=== PATIENT | male | born 1930 | race Caucasian/White ===

== ENCOUNTER → 2016-06-21 | Outpatient (CLI) | payer MEDICARE, BC ==
[2016-06-21 12:10] LABS: HEMATOCRIT 37.3 % (37.9-51.0); HGB HCT DIFFERENCE 1.7; MEAN CORPUSCULAR HEMOGLOBIN 30.7 pg (27.0-33.4); MEAN CORPUSCULAR HGB CONC 34.8 g/dL (32.0-36.0); MEAN CORPUSCULAR VOLUME 88 fl (80-97); RED BLOOD COUNT 4.23 10^6/uL (4.35-5.55); RED CELL DISTRIBUTION WIDTH 15.3 % (11.5-14.0); WHITE BLOOD COUNT 8.4 10^3/uL (4.0-10.5)
[2016-06-21 12:13] LABS: APPEARANCE,URINE CLOUDY; BILIRUBIN,URINE NEGATIVE (NEGATIVE); GLUCOSE, URINE NEGATIVE (NEGATIVE); KETONES,URINE NEGATIVE (NEGATIVE); LEUKOCYTE ESTERASE,URINE LARGE (NEGATIVE); NITRITE,URINE NEGATIVE (NEGATIVE); PROTEIN,URINE NEGATIVE (NEGATIVE); UROBILINOGEN,URINE NEGATIVE mg/dL (<2.0)
[2016-06-21 12:31] LABS: ALANINE AMINOTRANSFERASE 26 U/L (21-72); ALBUMIN 4.2 g/dL (3.5-5.0); ALKALINE PHOSPHATASE 137 U/L (38-126); ANION GAP 17 (5-19); ASPARTATE AMINO TRANSFERASE 19 U/L (17-59); BILIRUBIN,DIRECT 0.3 mg/dL (0.0-0.4); BILIRUBIN,TOTAL 0.7 mg/dL (0.2-1.3); BLOOD UREA NITROGEN 41 mg/dL (7-20); CALCIUM 9.4 mg/dL (8.4-10.2); CARBON DIOXIDE 21 mmol/L (22-30); CHLORIDE 107 mmol/L (98-107); CREATININE RESULT 2.19 mg/dL (0.52-1.25); GLUCOSE 149 mg/dL (75-110); POTASSIUM 4.5 mmol/L (3.6-5.0); SODIUM 145.4 mmol/L (137-145); TOTAL PROTEIN 7.2 g/dL (6.3-8.2)
== END ==
LOC: OD 11:29
PROVIDERS: ATTEND Internal Medicine Nephrology
DX: I12.9 Hypertensive chronic kidney disease with stage 1 through stage 4 chronic kidney disease, or unspecified chronic kidney disease (principal); N18.3 Chronic kidney disease, stage 3 (moderate); E83.42 Hypomagnesemia
CPT/HCPCS: 36415; 80053; 81001; 85027

== ENCOUNTER 2016-10-07 17:19 | Emergency (ER) | payer MEDICARE, BC ==
--- NOTE | 2016-10-07 17:39 | ER Document Report ---
ED General - General Stated Complaint: HEADACHE Time Seen by Provider: 10/07/16 17:30 Information source: Patient Notes: Patient is an 86-year-old male with past medical history as recorded who presents today complaining initially of some intermittent frontal headaches. He states that they are "in my sinuses". He denies any nausea, vomiting, or fevers. He denies any nasal congestion, facial swelling, recent upper respiratory tract infections. Patient denies any neck pain, chest pain, abdominal pain, weakness or numbness. EMS states when they arrived they found that the patient's heart rate was 27. Has a history of a slow heart rate previously. He denies any new medications or change in his medication dosages. TRAVEL OUTSIDE OF THE [place] IN LAST 30 DAYS: No - HPI Onset: Other - See above Onset/Duration: Gradual Quality of pain: No pain Severity: Mild Pain Level: Denies Associated symptoms: Other - See above Exacerbated by: Denies Relieved by: Denies Similar symptoms previously: No Recently seen / treated by doctor: No - Related Data Allergies/Adverse Reactions: No Known Allergies Allergy (Verified 10/29/14 13:58) Past Medical History - General Information source: Patient - Social History Smoking Status: Unknown if Ever Smoked Cigarette use (# per day): No Chew tobacco use (# tins/day): No Smoking Education Provided: No Frequency of alcohol use: None Family History: Reviewed & Not Pertinent - Past Medical History Cardiac Medical History: Reports: Hx Hypertension - medicated Denies: Hx Heart Attack Pulmonary Medical History: Denies: Hx Asthma Neurological Medical History: Denies: Hx Cerebrovascular Accident, Hx Seizures Endocrine Medical History: Reports: Hx Diabetes Mellitus Type 2 Renal/ Medical History: Reports: Hx Renal Insufficiency GI Medical History: Denies: Hx Hepatitis, Hx Hiatal Hernia, Hx Ulcer Musculoskeltal Medical History: Reports Hx Arthritis Infectious Medical History: Denies: Hx Hepatitis Past Surgical History: Reports: Hx Cholecystectomy, Hx Orthopedic Surgery - right knee implant, left shoulder implant. Denies: Hx Open Heart Surgery, Hx Pacemaker - Immunizations Hx Diphtheria, Pertussis, Tetanus Vaccination: Yes Review of Systems - Review of Systems Constitutional: denies: Fever EENT: denies: Eye discharge, Nose discharge Cardiovascular: denies: Chest pain, Palpitations Respiratory: denies: Short of breath Gastrointestinal: denies: Abdominal pain, Vomiting Genitourinary: denies: Dysuria Musculoskeletal: denies: Leg swelling Skin: Other - no hives. denies: Rash Neurological/Psychological: Other - no slurred speech -: Yes All other systems reviewed and negative Physical Exam - Vital signs Vitals: Resp 34 H 10/07/16 17:23 Reviewed vital signs and nursing note as charted by RN. CONSTITUTIONAL: Alert and oriented and responds appropriately to questions. Well -appearing; well-nourished HEAD: Normocephalic; atraumatic EYES: PERRL ENT: Normal nose; no rhinorrhea; patient has no obvious facial swelling, erythema, or fluctuance present. Sinuses are soft but not boggy and not erythematous; moist mucous membranes; pharynx without lesions noted NECK: Supple without meningismus; non-tender; no cervical lymphadenopathy, no masses CARDS: Bradycardic. No carotid murmurs, no clicks, no rubs, no gallops; symmetric distal pulses RESP: Normal chest excursion without splinting or tachypnea; breath sounds clear and equal bilaterally; no wheezes, no rhonchi, no rales ABD/GI: Normal bowel sounds; non-distended; soft, non-tender, no rebound, no guarding; no palpable organomegaly or masses BACK: The back appears normal and is non-tender to palpation, there is no CVA tenderness EXT: Normal ROM in all joints; non-tender to palpation; no cyanosis, no effusions, no edema SKIN: Normal color for age and race; warm; dry; good turgor; capillary refill < 2 seconds; no acute lesions noted NEURO: CN II through XII are intact. Has 5 out of 5 bilateral upper and lower extremity strength with sensation intact to light touch. PSYCH: The patient's mood and manner are appropriate. Grooming and personal hygiene are appropriate. Course - Re-evaluation Re-evalutation: EKG shows a heart rate of 27, there appears to be P waves eating at their own rhythm with what appears to be a ventricular escape rhythm at a rate of 27 narrow in appearance. 10/07/16 17:37 Given the history and physical examination, we will place pacer pads on the patient. I will obtain a CT scan of the head. Given the intermittent nature of the headaches without fever, I do believe subarachnoid hemorrhage and acute bacterial meningitis to be unlikely. Patient has no temporal erythema or tenderness leading me to believe temporal arteritis to be unlikely. Given the patient's heart rate of 27, with the EKG is recorded, I believe the patient either has a type II second-degree block or complete heart block with a junctional escape rhythm. Blood pressure is stable. 10/07/16 18:05 Pressure is still stable. Heart rate is currently at 30. Patient does have intermittent episodes where he becomes slightly confused for a brief second and then subsides. I have tried to give a dose of atropine. I have called [facility] to help expedite transfer and I have also called the local land appraiser . 10/07/16 18:10 I called and spoke to the land appraiser directly, Dr. duran. He agrees with the atropine challenge. He also would like me to provide intravenous glucagon. This has been ordered. 10/07/16 18:28 CBC and cardiac panel as recorded. No change in exam. Patient currently has no focal neurological deficits. CT scan of the head shows no acute abnormalities. 10/07/16 18:50 [facility] is at bedside. He has asked me to also add insulin as well as a calcium gluconate. This has been performed. Patient has not had any repeat episodes. I did call and speak to the allocations clerk and the performance improvement coordinator and [facility] who has accepted the patient for transfer. 10/07/16 19:29 The transport team, [facility] is here to transfer the patient. Blood pressure is still stable. The land appraiser Dr. Duran is at bedside and talk to the allocations clerk and the land appraiser. They do not believe that we should delay transport given his stable blood pressure by placing a central line/temporary pacemaker. - Vital Signs Vital signs: Temp Pulse Resp BP Pulse Ox 97.4 F 31 L 11 L 142/60 H 100 10/07/16 19:21 10/07/16 17:44 10/07/16 19:00 10/07/16 19:25 10/07/16 19:00 - Laboratory Result Diagrams: 10/07/16 17:39 10/07/16 17:39 Laboratory results interpreted by me: 10/07/16 08 17:39 17:39 RBC 4.00 L Hgb 12.6 L Hct 36.9 L RDW 15.5 H Potassium 5.3 H Chloride 110 H Carbon Dioxide 21 L BUN 54 H Creatinine 2.36 H Est GFR ( Amer) 32 L Est GFR (Non-Af Amer) 26 L Glucose 156 H Critical Care Note - Critical Care Note Total time excluding time spent on procedures (mins): 40 Discharge - Discharge Clinical Impression: Complete heart block Headache Qualifiers: Headache chronicity pattern: unspecified pattern Condition: Critical Disposition: [facility] Referrals: GARIMA SPEAR MD [Primary Care Provider] - Follow up as needed
[2016-10-07 17:52] LABS: ABSOLUTE LYMPHOCYTES (AUTO) 1.5 10^3/uL (0.5-4.7); ABSOLUTE MONOCYTES (AUTO) 0.3 10^3/uL (0.1-1.4); ABSOLUTE NEUT (AUTO) 6.2 10^3/uL (1.7-8.2); BASOPHILS % (AUTO) 0.5 % (0-2); EOSINOPHILS % (AUTO) 0.2 % (0-6); HEMATOCRIT 36.9 % (37.9-51.0); HEMOGLOBIN 12.6 g/dL (13.5-17.0); HGB HCT DIFFERENCE 0.9; LYMPHOCYTES % (AUTO) 18.3 % (13-45); MEAN CORPUSCULAR HEMOGLOBIN 31.5 pg (27.0-33.4); MEAN CORPUSCULAR HGB CONC 34.2 g/dL (32.0-36.0); MEAN CORPUSCULAR VOLUME 92 fl (80-97); MONOCYTES % (AUTO) 3.3 % (3-13); RED CELL DISTRIBUTION WIDTH 15.5 % (11.5-14.0); SEGMENTED NEUTROPHILS % (AUTO) 77.7 % (42-78); WHITE BLOOD COUNT 7.9 10^3/uL (4.0-10.5)
--- NOTE | 2016-10-07 17:52 | EKG REPORT ---
SEVERITY:- ABNORMAL ECG - COMPLETE HEART BLOCK RIGHT BUNDLE BRANCH BLOCK : Confirmed by: Armin Liu 07-Oct-2016 17:52:02
[2016-10-07 17:59] LABS: PROTHROMBIN TIME 13.1 SEC (11.4-15.4)
[2016-10-07] MEDS ORDERED: ATROPINE SULFATE INJ 1 MG/1 ML VIAL IV ONE ×2 (17:59→19:12)
[2016-10-07 18:00] LABS: PARTIAL THROMBOPLASTIN TIME 30.1 SEC (23.5-35.8)
[2016-10-07] MEDS ORDERED: GLUCAGON,HUMAN RECOMB 1 MG INJ IV PRN (18:10)
--- NOTE | 2016-10-07 18:13 | RADIOLOGY REPORT (SQ) ---
EXAM DESCRIPTION: CT HEAD WITHOUT COMPLETED DATE/TIME: 10/07/2016 6:00 pm REASON FOR STUDY: Tr1; headache COMPARISON: October 2014 TECHNIQUE: Axial images acquired through the brain without intravenous contrast. Images reviewed wi th bone, brain and subdural windows. Images stored on PACS. All CT scanners at this facility use dose modulation, iterative reconstruction, and/or weight based d osing when appropriate to reduce radiation dose to as low as reasonably achievable (ALARA). [facility]: Dose Right [facility]: CareDose [facility]: Dose Right [facility]: Teradose 4D [facility]: Smart Communicado RADIATION DOSE: Up-to-date CT equipment and radiation dose reduction techniques were employed. CTDIv ol: 29.1 - 64.6 mGy. DLP: 1734 mGy-cm.mGy. LIMITATIONS: None. FINDINGS: VENTRICLES: Prominent. CEREBRUM: No masses. No hemorrhage. No midline shift. Areas of low density in the white matter mos t likely due to chronic micro-vascular ischemic change. No evidence for acute infarction. CEREBELLUM: No masses. No hemorrhage. No alteration of density. No evidence for acute infarction. EXTRAAXIAL SPACES: Age-related involutional change. No fluid collections. No masses. ORBITS AND GLOBE: No intra- or extraconal masses. Normal contour of globe without masses. CALVARIUM: No fracture. PARANASAL SINUSES: No fluid or mucosal thickening. SOFT TISSUES: No mass or hematoma. OTHER: No other significant finding. IMPRESSION: CHRONIC CHANGES OF ATROPHY AND MICROVASCULAR ISCHEMIA. NO ACUTE PROCESS. TECHNICAL DOCUMENTATION: JOB ID: [id number] Quality ID # [id number]: Final reports with documentation of one or more dose reduction techniques (e.g., Au tomated exposure control, adjustment of the mA and/or kV according to patient size, use of iterative reconstruction technique) 2010 [employer]- All Rights Reserved
[2016-10-07 18:26] LABS: ANION GAP 11 (5-19); BLOOD UREA NITROGEN 54 mg/dL (7-20); CALCIUM 9.2 mg/dL (8.4-10.2); CARBON DIOXIDE 21 mmol/L (22-30); CHLORIDE 110 mmol/L (98-107); CREATININE RESULT 2.36 mg/dL (0.52-1.25); GLUCOSE 156 mg/dL (75-110); POTASSIUM 5.3 mmol/L (3.6-5.0); SODIUM 141.7 mmol/L (137-145)
[2016-10-07] MEDS ORDERED: CALCIUM GLUCONATE 1000 MG/10 ML INJ IV ONE (18:38)
[2016-10-07] MEDS ORDERED: NORMAL SALINE 1000 ML 1,000 ML IV ONE (18:45)
[2016-10-07] MEDS ORDERED: INSULIN REG, HUMAN 100 UNIT/ML 3 ML VIAL (PYX) IV ONE (18:47)
[2016-10-07] MEDS ORDERED: DEXTROSE 50%-WATER 25 GM/50 ML DISP.SYRIN IV ONE (18:47)
[2016-10-07 19:26] VITALS: BP 142/60
[2016-10-07 19:43] LABS: FREE T3 3.25 pg/mL (2.77-5.27)
[2016-10-07 19:57] LABS: THYROID STIMULATING HORMONE 4.97 uIU/mL (0.47-4.68)
[2016-10-07] MEDS ORDERED: SODIUM POLYSTYRENE SULFONATE 15 GM/60 ML PO ONE (20:00)
--- NOTE | 2016-10-08 11:14 | CONSULTATION REPORT E ---
Consultation Report NAME: ANNA WILLARD : 1930 AGE: 86Y DATE: 10/07/2016 TO: FRANK VAZQUEZ M.D. FROM: CHEL ROY M.D. Requesting Physician The patient is seen at 6:15 p.m. REASON FOR CONSULTATION: Complete heart block. HISTORY OF PRESENT ILLNESS: The patient is an 86-year-old male with a history of hypertension and diabetes mellitus who as per has no prior cardiac problems. He stated that since Friday he has been having intermittent severe frontal headaches. The also noticed him to have seizure-like activity and it is not clear whether it is Stoke-Stokes or seizures, but it lasts only for 10 seconds. When the EMS was there, the patient's heart rate was 27, but his blood pressure was stable. He also was found to have ehise-tl-vyotkyo renal failure. 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 He is also hyperkalemic. In spite of the heart rate being in the 30's, the patient's blood pressure was stable except for intermittent seizure activity which it is not whether it is Stoke-Stokes or seizures since the patient's heart rate did not dip below 30 and the patient's blood pressure was stable. The patient denies any chest pain, shortness of breath, PND, orthopnea or leg edema. In the emergency room, the patient was given atropine 1 mg x2 and due to the hyperkalemia, the patient was given calcium gluconate, Kayexalate 15 g p.o. and also 50% dextrose and regular insulin 5 units. The patient was also given Glucagon. In spite of this, the heart rate came to 32 and in between the patient's blood pressure level dropped and the patient intermittently was having seizure-like activity versus Stoke-Stokes, but lasted only for 10 seconds and they were further and further apart. The patient also complains of headache. Since the found the patient have seizure-like activity, she brought him to the emergency room. PAST MEDICAL HISTORY: Past history of hypertension. There is no history of NC, CHF or anginal symptoms or coronary artery disease. There is no history of asthma or COPD. There is no history of CVA. There is no past history of seizures. He has a history of diabetes mellitus type 2, noninsulin dependent. He also has a history of renal failure, which was chronic kidney disease stage III, now the patient is stage IV. He has a history of arthritis. He has history also of hypothyroidism. He also has a history of enlarged prostate. PAST SURGICAL HISTORY: 1. History of cholecystectomy. 2. History of orthopedic surgery. 3. Bilateral knee surgery. 4. Left shoulder implant. ALLERGIES: No known allergies. FAMILY HISTORY: Father and mother of heart disease. Sister of Alzheimer's. REVIEW OF SYSTEMS: CONSTITUTIONAL: Denies any fever, chills or rigors. The patient complains of frontal headaches, but there is no visual loss and no focal deficits. EYES: There is no history of glaucoma, blurred vision. There is no diplopia. EARS: There is no hearing loss. There is no tinnitus. There is no recurrent ear infection. NOSE: There is no history of nasal allergies. There is no history of hay fever. MOUTH: Complains of dryness of the mouth. There is no altered taste sensation. There are no ulcers in the mouth. THROAT: There is no odynophagia or dysphagia. There are no recurrent sore throats. SKIN: There is no skin rashes. There is no petechia or ecchymosis. There are no skin lesions. NECK: There are no enlarged neck lymph nodes. There is no swelling in the neck. LUNGS: No history of asthma or COPD. No history of cough or sputum production. No history of pleuritic chest pain. No history of sleep apnea. No history of COPD. No history of pulmonary embolism. No history of hemoptysis. No history of pleuritic chest pain. CARDIAC: History of hypertension. No prior history of arrhythmias. Note that the patient states that although she did not know the dose he was on metoprolol once daily, most likely Toprol XL. The dose is not known. There is no prior history of congestive heart failure. There is no history of PND or orthopnea. No history of leg edema. No prior history of syncope, but at present it is not clear whether it is Stoke-Stokes or seizures, but lasting only 10 seconds and at that time the heart rate was around 30 per minute with stable blood pressure. There is no history of leg edema. There is no PND or orthopnea. ENDOCRINE: History of diabetes mellitus type 2, noninsulin dependent. History of hypothyroidism. History of obesity present. METABOLIC: Denies hyperlipidemia. History of obesity present. RENAL: The patient has a history of enlarged prostate. There is enlarged prostate. He also has history of chronic kidney disease. CENTRAL NERVOUS SYSTEM: No prior history of seizures. These episodes are new. He has no history of TIA or CVA. History of headaches present. He came in with sinus headaches. PSYCHIATRIC: No history of anxiety or depression. No history of suicidal ideation. MUSCULOSKELETAL: History of arthritis. He has degenerative joint disease, back pain and also neck pain. He also has spinal stenosis. He does not walk much. VASCULAR: History of peripheral vascular disease, but denies claudication. The patient does not walk much. There is no history of DVT. HEMATOLOGIC: No history of bleeding diathesis. No history of clotting disorders. SKIN: There are no skin rashes. There is no petechiae or ecchymosis. There is no skin lesions. There is no history of psoriasis or history of skin cancer. MEDICATIONS: 1. Atropine 1 mg IV x2 for a total of 2 mg. 2. Calcium gluconate 1000 mg IV piggyback. 3. He was also getting dextrose 25 g IV x1 along with regular insulin 5 units IV. 4. Glucagon 1 mg IV once. 5. He is also on normal saline at 500 mL bolus. 6. Glucagon 1 mg IV. 7. He also got Kayexalate 15 g suspension orally. PHYSICAL EXAMINATION: GENERAL: The patient is mild to moderately obese. When he wakes up, he is in no acute distress but he has intermittent ____ lasting only for about 10 seconds. VITAL SIGNS: He is afebrile with a temperature of 97.4 degrees Fahrenheit orally, pulse is 30 to 32 beats per minute. The EKG shows complete heart block with incomplete right bundle branch block pattern. His blood pressure is 166/48 and subsequently 148/60. His respirations are 13 per minute, 02 sats are 100% on room air. HEENT: Ears: Tympanic membranes are intact. External auditory canals are clear. Nose: There is no deviated nasal septum. There is inflammation of the nasal mucous membranes. Mouth: Mucous membranes of the mouth and tongue are dry. There are no ulcers in the mouth. Throat: There is no redness of the oropharynx. There are no exudates. SKIN: There are no skin rashes. There is no petechia or ecchymosis. There are no skin lesions. NECK: Supple. There is no JVD. Carotids are equal. There is no bruit. There is no goiter. Trachea is central. LUNGS: Clear to auscultation and percussion. HEART: S1 and S2 are heard. There is in the neck intermittently. There is no S3 gallop. There is no S4 gallop. There is a systolic murmur in the left sternal border at the apex. I do not hear a significant murmur or aortic stenosis. ABDOMEN: Soft, nontender. Slightly obese. There is no hepatosplenomegaly. Bowel sounds are well heard. There are no tender areas or masses. EXTREMITIES: Femorals are diminished. There are no femoral bruits. Leg pulses are diminished. There is no pedal edema. There is no DVT or cellulitis. There is no calf tenderness. CENTRAL NERVOUS SYSTEM: At present the patient is conscious, awake, alert, oriented x3 with no focal deficits. PSYCHIATRIC: The patient does not appear to be anxious or depressed. His judgment and insight seem to be intact. DIAGNOSTIC TEST RESULTS: The patient's heart rate on the EKG showed complete heart block and right bundle branch block pattern. The patient's head CT showed chronic changes of atrophy and microvascular ischemia. No acute process by CT of the brain. The patient's sodium is 141.7, potassium 5.3, chloride 110, CO2 is 21. The patient's BUN was 54, creatinine 2.36 and estimated GFR is 26, which is chronic kidney disease stage IV (acute on chronic kidney disease). The patient has a prior history of chronic kidney disease stage III. The patient's calcium is 9.1. Troponin is less than 0.12. The patient's glucose is 225. TSH is 4.97. Free T4 is 1.26. Free T3 is 3.25. The patient's pro time is 13.1, INR is 0.93. PTT is 30.1. The patient's white count is 7900, hemoglobin is 12.6, hematocrit is 36.9, platelet count is 188,000. DISPOSITION: The patient is a FULL CODE. His was his surrogate healthcare decision maker. IMPRESSION: 1. Complete heart block. 2. Right bundle branch block pattern. 3. Bradycardia. 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 5. Hypertension. 6. Diabetes mellitus. 7. Hyperkalemia. 8. Chronic kidney disease, now stage IV, used to be stage III. 9. Hypothyroidism. 10. Enlarged prostate. 11. Spinal stenosis. 12. Degenerative joint disease. Note as mentioned earlier, Dr. Roy in the ER had already spoken to [employer] with the barkeep and the roving machine operator and they accepted him. At present since the patient's blood pressure is stable, they felt like he was not ready for a temporary pacemaker insertion. They said they will look after that there. Also, they wanted the patient to be . I did speak to the barkeep, but I was still waiting from the dough puncher, but since the patient was stable in spite of a heart rate of 32 to 40 with stable blood pressure, the EMT said that they were comfortable taking the patient and they placed . Note 40 minutes spent on this patient with more than 50% of the time spent on direct patient care. ALLERGIES: The patient has no known allergies. Since the patient is being transferred, we will sign off. The case was discussed with ER physician, Dr. Roy. DICTATING PHYSICIAN: FRANK VAZQUEZ M.D. [id number] PHY#: [id number] ID: [id number] JOB#: [id number] ACCT: [id number] cc:FRANK VAZQUEZ M.D. >
== END 2016-10-07 19:32 | disposition short-term general hospital (02) ==
LOC: ER 17:19
DX: I44.2 Atrioventricular block, complete (principal); R51 Headache
CPT/HCPCS: 93005; 96376; 99291; 96374; 96375; 36415; 84439; 82962; 84443; 85025; 85610; 85730; 80048; 84484; 84481; 70450; 93010; J0461; J0610; J3490; J1610; A9270; J7030; J1815

== ENCOUNTER → 2017-06-26 | Outpatient (CLI) | payer MEDICARE, BC ==
[2017-06-26 13:59] LABS: HEMATOCRIT 33.6 % (37.9-51.0); HEMOGLOBIN 11.5 g/dL (13.5-17.0); MEAN CORPUSCULAR HEMOGLOBIN 29.8 pg (27.0-33.4); MEAN CORPUSCULAR HGB CONC 34.3 g/dL (32.0-36.0); MEAN CORPUSCULAR VOLUME 87 fl (80-97); PLATELET COUNT 224 10^3/uL (150-450); RED BLOOD COUNT 3.87 10^6/uL (4.35-5.55); RED CELL DISTRIBUTION WIDTH 17.7 % (11.5-14.0); WHITE BLOOD COUNT 6.9 10^3/uL (4.0-10.5)
[2017-06-26 14:05] LABS: APPEARANCE,URINE CLOUDY; BILIRUBIN,URINE NEGATIVE (NEGATIVE); COLOR,URINE YELLOW; GLUCOSE, URINE NEGATIVE (NEGATIVE); KETONES,URINE NEGATIVE (NEGATIVE); LEUKOCYTE ESTERASE,URINE LARGE (NEGATIVE); NITRITE,URINE NEGATIVE (NEGATIVE); PROTEIN,URINE NEGATIVE (NEGATIVE); UROBILINOGEN,URINE NEGATIVE mg/dL (<2.0)
[2017-06-26 14:25] LABS: ANION GAP 13 (5-19); BLOOD UREA NITROGEN 43 mg/dL (7-20); CALCIUM 9.7 mg/dL (8.4-10.2); CARBON DIOXIDE 25 mmol/L (22-30); CHLORIDE 109 mmol/L (98-107); GLUCOSE 157 mg/dL (75-110); POTASSIUM 4.1 mmol/L (3.6-5.0); SODIUM 146.5 mmol/L (137-145); UR PRO/CREAT RATIO RESULT 0.6 mg/mg (0.0-0.2); URINE CREATININE 57.5 mg/dL (22-328); URINE PROTEIN 33.6 mg/dL (<12)
== END ==
LOC: OD 13:04
PROVIDERS: ATTEND Internal Medicine Nephrology
DX: I12.9 Hypertensive chronic kidney disease with stage 1 through stage 4 chronic kidney disease, or unspecified chronic kidney disease (principal); N18.3 Chronic kidney disease, stage 3 (moderate); E83.42 Hypomagnesemia; E11.9 Type 2 diabetes mellitus without complications
CPT/HCPCS: 36415; 80048; 81001; 82570; 83735; 84156; 85027

== ENCOUNTER 2017-07-18 15:35 | Emergency (ER) | payer MEDICARE, BC ==
--- NOTE | 2017-07-18 16:09 | ER Document Report ---
ED Medical Screen (RME) - General Chief Complaint: Hand Swelling Stated Complaint: SWOLLEN HAND Time Seen by Provider: 07/18/17 16:03 Notes: RAPID MEDICAL EVALUATION DISCLOSURE I have seen this patient as part of a Rapid Medical Evaluation and, if applicable, placed any initially appropriate orders. The patient will be seen and fully evaluated, including a full history and physical exam, by a provider ( in Main ED or Fast Track) when a room becomes available. 87-year-old male here with complaints of right upper extremity swelling and pain that started approximately 6 days ago. He does not remember hitting it on anything or sustaining any insect bites. He denies swelling in the other extremities. He does not have any itching in the area of the swelling. He has been eating and drinking normally. Today, he went to urgent care and was sent here for further evaluation specifically regarding whether he may have a DVT. EXAM Mild to moderate pitting edema of the right hand Mild pitting edema of distal forearm No significant lower extremity edema TRAVEL OUTSIDE OF THE [place] IN LAST 30 DAYS: No - Related Data Allergies/Adverse Reactions: No Known Allergies Allergy (Verified 07/18/17 15:41) Past Medical History - Social History Frequency of alcohol use: None Drug Abuse: None - Past Medical History Cardiac Medical History: Reports: Hx Hypertension - medicated Denies: Hx Heart Attack Pulmonary Medical History: Denies: Hx Asthma Neurological Medical History: Denies: Hx Cerebrovascular Accident, Hx Seizures Endocrine Medical History: Reports: Hx Diabetes Mellitus Type 2 Renal/ Medical History: Reports: Hx Renal Insufficiency. Denies: Hx Peritoneal Dialysis GI Medical History: Denies: Hx Hepatitis, Hx Hiatal Hernia, Hx Ulcer Musculoskeltal Medical History: Reports Hx Arthritis Infectious Medical History: Denies: Hx Hepatitis Past Surgical History: Reports: Hx Cholecystectomy, Hx Orthopedic Surgery - right knee implant, left shoulder implant. Denies: Hx Open Heart Surgery, Hx Pacemaker - Immunizations Hx Diphtheria, Pertussis, Tetanus Vaccination: Yes Physical Exam - Vital signs Vitals: Temp Pulse Resp BP Pulse Ox 97.9 F 61 24 H 129/51 H 98 05/1818 15:42 07/18/17 15:42 07/18/17 15:42 07/18/17 15:42 07/18/17 15:42 Course - Vital Signs Vital signs: Temp Pulse Resp BP Pulse Ox 97.9 F 61 24 H 129/51 H 98 07/18/17 15:42 07/18/17 15:42 07/18/17 15:42 07/18/17 15:42 07/18/17 15:42
--- NOTE | 2017-07-18 17:39 | RADIOLOGY REPORT (SQ) ---
EXAM DESCRIPTION: HAND RIGHT 3 VIEWS COMPLETED DATE/TIME: 07/18/2017 5:24 pm REASON FOR STUDY: R hand swelling COMPARISON: None. EXAM PARAMETERS: NUMBER OF VIEWS: Three views. TECHNIQUE: AP, lateral and oblique radiographic images acquired of the right hand. LIMITATIONS: None. FINDINGS: MINERALIZATION: Osteopenia. BONES: No acute fracture or dislocation. No worrisome bone lesions. JOINTS: Severe diffuse erosive arthritic change involving all IP joints, metacarpophalangeal joints, carpometacarpal joint, and wrist. SOFT TISSUES: Diffuse soft tissue swelling. Vascular calcifications. Additional soft tissue calcifi cations involving multiple joint spaces in most notably involving the 2nd and 3rd metacarpal phalange al joint spaces. OTHER: No other significant finding. IMPRESSION: NO FRACTURE. 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 CORRELATE WITH PATIENT'S CLINICAL HISTORY. TECHNICAL DOCUMENTATION: JOB ID: [id number] [employer]- All Rights Reserved Reading location - IP/workstation name: [email or web address]
[2017-07-18 17:46] LABS: ABSOLUTE LYMPHOCYTES (AUTO) 1.3 10^3/uL (0.5-4.7); ABSOLUTE MONOCYTES (AUTO) 0.6 10^3/uL (0.1-1.4); ABSOLUTE NEUT (AUTO) 8.2 10^3/uL (1.7-8.2); BASOPHILS % (AUTO) 0.2 % (0-2); EOSINOPHILS % (AUTO) 0.1 % (0-6); HEMATOCRIT 33.2 % (37.9-51.0); HEMOGLOBIN 11.4 g/dL (13.5-17.0); LYMPHOCYTES % (AUTO) 13.3 % (13-45); MEAN CORPUSCULAR HEMOGLOBIN 29.8 pg (27.0-33.4); MEAN CORPUSCULAR HGB CONC 34.4 g/dL (32.0-36.0); MEAN CORPUSCULAR VOLUME 86 fl (80-97); MONOCYTES % (AUTO) 5.5 % (3-13); PLATELET COUNT 231 10^3/uL (150-450); RED BLOOD COUNT 3.84 10^6/uL (4.35-5.55); RED CELL DISTRIBUTION WIDTH 17.1 % (11.5-14.0); SEGMENTED NEUTROPHILS % (AUTO) 80.9 % (42-78); TOTAL CELLS COUNTED % (AUTO) 100 %; WHITE BLOOD COUNT 10.1 10^3/uL (4.0-10.5)
[2017-07-18 17:59] LABS: ANION GAP 17 (5-19); BLOOD UREA NITROGEN 46 mg/dL (7-20); CALCIUM 9.4 mg/dL (8.4-10.2); CARBON DIOXIDE 21 mmol/L (22-30); CHLORIDE 107 mmol/L (98-107); GLUCOSE 138 mg/dL (75-110); POTASSIUM 4.2 mmol/L (3.6-5.0); SODIUM 144.6 mmol/L (137-145)
[2017-07-18 18:31] VITALS: BP 157/63
[2017-07-18] MEDS ORDERED: PREDNISONE 20 MG TABLET PO ONE (18:33)
[2017-07-18] MEDS ORDERED: COLCHICINE 0.6 MG TABLET PO ONE (18:33)
--- NOTE | 2017-07-18 18:35 | ER Document Report ---
ED General - General Chief Complaint: Hand Swelling Stated Complaint: SWOLLEN HAND Time Seen by Provider: 07/18/17 16:03 Mode of Arrival: Ambulatory Information source: Patient Notes: 87-year-old male history of gout presents with complaints of right hand swelling is worsened over the past week. Patient denies any fevers or chills believe there is gout and has been using cold compresses with minimal improvement. Patient denies any fevers or chills denies any chest pain shortness breath difficulty breathing notes he usually gets gout in the lower extremity TRAVEL OUTSIDE OF THE [place] IN LAST 30 DAYS: No - HPI Onset: Last week Onset/Duration: Persistent, Worse Quality of pain: Achy Severity: Mild Pain Level: 1 Associated symptoms: Other Exacerbated by: Denies Relieved by: Denies Similar symptoms previously: No Recently seen / treated by doctor: No - Related Data Allergies/Adverse Reactions: No Known Allergies Allergy (Verified 07/18/17 15:41) Past Medical History - Social History Smoking Status: Never Smoker Cigarette use (# per day): No Chew tobacco use (# tins/day): No Smoking Education Provided: No Frequency of alcohol use: None Drug Abuse: None Family History: Reviewed & Not Pertinent Patient has suicidal ideation: No Patient has homicidal ideation: No - Past Medical History Cardiac Medical History: Reports: Hx Hypertension - medicated Denies: Hx Heart Attack Pulmonary Medical History: Denies: Hx Asthma Neurological Medical History: Denies: Hx Cerebrovascular Accident, Hx Seizures Endocrine Medical History: Reports: Hx Diabetes Mellitus Type 2 Renal/ Medical History: Reports: Hx Renal Insufficiency. Denies: Hx Peritoneal Dialysis GI Medical History: Denies: Hx Hepatitis, Hx Hiatal Hernia, Hx Ulcer Musculoskeltal Medical History: Reports Hx Arthritis Infectious Medical History: Denies: Hx Hepatitis Past Surgical History: Reports: Hx Cholecystectomy, Hx Orthopedic Surgery - right knee implant, left shoulder implant. Denies: Hx Open Heart Surgery, Hx Pacemaker - Immunizations Hx Diphtheria, Pertussis, Tetanus Vaccination: Yes Review of Systems - Review of Systems Notes: REVIEW OF SYSTEMS: CONSTITUTIONAL : Denies fever, chills, or sweats. Denies recent illness. EENT: Denies eye, ear, throat, or mouth pain or symptoms. Denies nasal or sinus congestion or discharge. Denies throat, tongue, or mouth swelling or difficulty swallowing. CARDIOVASCULAR: Denies chest pain. Denies palpitations or racing or irregular heart beat. Denies ankle edema. RESPIRATORY: Denies cough, cold, or chest congestion. Denies shortness of breath, difficulty breathing, or wheezing. GASTROINTESTINAL: Denies abdominal pain or distention. Denies nausea, vomiting , or diarrhea. Denies blood in vomitus, stools, or per rectum. Denies black, tarry stools. Denies constipation. GENITOURINARY: Denies difficulty urinating, painful urination, burning, frequency, blood in urine, or discharge. MUSCULOSKELETAL: Admits to right hand swelling SKIN: Denies rash, lesions or sores. HEMATOLOGIC : Denies easy bruising or bleeding. LYMPHATIC: Denies swollen, enlarged glands. NEUROLOGICAL: Denies confusion or altered mental status. Denies passing out or loss of consciousness. Denies dizziness or lightheadedness. Denies headache. Denies weakness or paralysis or loss of use of either side. Denies problems with gait or speech. Denies sensory loss, numbness, or tingling. Denies seizures. PSYCHIATRIC: Denies anxiety or stress. Denies depression, suicidal ideation, or homicidal ideation. ALL OTHER SYSTEMS REVIEWED AND NEGATIVE. Dictation was performed using [employer] voice recognition software PHYSICAL EXAMINATION: GENERAL: Well-appearing, well-nourished and in no acute distress. HEAD: Atraumatic, normocephalic. EYES: Pupils equal round and reactive to light, extraocular movements intact, sclera anicteric, conjunctiva are normal. ENT: Nares patent, oropharynx clear without exudates. Moist mucous membranes. NECK: Normal range of motion, supple without lymphadenopathy LUNGS: Breath sounds clear to auscultation bilaterally and equal. No wheezes rales or rhonchi. HEART: Regular rate and rhythm without murmurs ABDOMEN: Soft, nontender, nondistended abdomen. No guarding, no rebound. No masses appreciated. Musculoskeletal: Normal range of motion, no pitting or edema. No cyanosis. NEUROLOGICAL: Cranial nerves grossly intact. Normal speech, normal gait. Normal sensory, motor exams PSYCH: Normal mood, normal affect. SKIN: Right hand is quite edematous there is mild erythema there is no breakdown the skin no obvious sign of infection Physical Exam - Vital signs Vitals: Temp Pulse Resp BP Pulse Ox 97.9 F 61 24 H 129/51 H 98 07/18/17 15:42 07/18/17 15:42 07/18/17 15:42 07/18/17 15:42 07/18/17 15:42 Course - Re-evaluation Re-evalutation: 07/18/17 22:39 Patient's lab work notes no white count elevation chronic kidney disease noted, I do believe the patient does not fact have a gout flare, Doppler noted no blockage, x-ray was consistent with arthritic changes Patient will be placed on prednisone as the colchicine could cause harm given his kidney function Very strict return precautions and provide as well as information regarding infectious process After performing a Medical Screening Examination, I estimate there is LOW risk for OPEN FRACTURE, COMPARTMENT SYNDROME, TENDON RUPTURE, ACUTE NEUROVASCULAR INJURY, or RETAINED FOREIGN BODY, thus I consider the discharge disposition reasonable. Also, there is no evidence or peritonitis, sepsis, or toxicity. I have reevaluated this patient multiple times and no significant life threatening changes are noted. The patient and I have discussed the diagnosis and risks, and we agree with discharging home with close follow-up with the understanding that symptoms and presentations can change. We also discussed returning to the Emergency Department immediately if new or worsening symptoms occur. We have discussed the symptoms which are most concerning (e.g., changing or worsening pain, fever, numbness, weakness, cool or painful digits) that necessitate immediate return. - Vital Signs Vital signs: Temp Pulse Resp BP Pulse Ox 99.2 F 77 18 157/63 H 100 07/18/17 18:30 07/18/17 18:30 07/18/17 18:30 07/18/17 18:30 07/18/17 18:30 - Laboratory Result Diagrams: 07/18/17 17:30 07/18/17 17:30 Laboratory results interpreted by me: 07/18/17 07/18/17 17:30 17:30 RBC 3.84 L Hgb 11.4 L Hct 33.2 L RDW 17.1 H Seg Neutrophils % 80.9 H Carbon Dioxide 21 L BUN 46 H Creatinine 2.47 H Est GFR ( Amer) 30 L Est GFR (Non-Af Amer) 25 L Glucose 138 H - Diagnostic Test Radiology reviewed: Image reviewed, Reports reviewed - Doppler right upper extremity notes no abnormality Discharge - Discharge Clinical Impression: Gout Qualifiers: Gout site: unspecified site Gout etiology: unspecified cause Chronicity: acute Qualified Code(s): M10.9 - Gout, unspecified Condition: Stable Disposition: HOME, SELF-CARE Instructions: Gout ([facility]), Gout Diet ([facility]) Additional Instructions: Follow up with your physician tomorrow for further care or return to the ED IMMEDIATELY if symptoms worsen or new concerns occur. If you cannot afford to follow up with your primary care physician a list of low cost clinics have been provided at the end of your discharge papers as well. Prescriptions: Prednisone [Deltasone 20 mg Tablet] 3 tab PO DAILY 5 Days tablet
--- NOTE | 2017-07-19 13:11 | XCELERA REPORT ---
[address] [address] Upper Extremity Venous Evaluation Name: ANNA WILLARD Age: 87 yrs Gender: Male : 1930 Patient Status: Preadmit Patient Location: ER Study Date: 07/18/2017 04:23 PM Procedure: Unilateral duplex scan of the right upper extremity veins was performed, including responses to compression and other maneuvers. Reason For Study: RUE swelling; eval DVT Ordering Physician: RANCHO CROWE Performed By: Hortencia Vasquez Right Side Venous Evaluation Color flow duplex imaging shows all veins to be compressible with wall-to- wall color filling. Pulsatile and phasic flow is present within all right upper extremity deep and superficial veins examined. Interpretation Summary Normal compression, patency, spontaneous and phasic flow of the right upper extremity veins. : RANCHO CROWE [place]
== END 2017-07-18 19:10 | disposition home or self-care (01) ==
LOC: ER 15:35
DX: M10.9 Gout, unspecified (principal); M79.89 Other specified soft tissue disorders; I10 Essential (primary) hypertension; E11.9 Type 2 diabetes mellitus without complications; Z90.49 Acquired absence of other specified parts of digestive tract
CPT/HCPCS: 99284; 36415; 85025; 80048; 93971 ×2; 73130; A9270; J7512

== ENCOUNTER 2017-12-15 17:13 | Inpatient (IN) | payer MEDICARE, BC ==
--- NOTE | 2017-12-15 18:03 | ER Document Report ---
ED Medical Screen (RME) - General Chief Complaint: Probable Seizure Stated Complaint: POSSIBLE SEIZURE Time Seen by Provider: 12/15/17 17:30 Mode of Arrival: Wheelchair Information source: Patient, Friend Notes: 87-year-old male presents emergency department status post tonic-clonic movements. Patient's friend took him to go see his wifeat 14:30. As the patient was getting out of the car his friend noticed he was having tonic- clonic movements to the left and right upper extremities. He states that at this time the patient was staring straight ahead and not blinking. He was not responding to questions. The friend states that this lasted about 30 seconds. When the patient began talking he was having some slurred speech. The patient' s friend states that he has been having intermittent slurred speech for the last 3 days. Patient denies any trauma or injury. He is not on any anticoagulants. I have greeted and performed a rapid initial assessment of this patient. A comprehensive ED assessment and evaluation of the patient, analysis of test results and completion of the medical decision making process will be conducted by additional ED providers. PHYSICAL EXAMINATION: GENERAL: Well-appearing, well-nourished and in no acute distress. HEAD: Atraumatic, normocephalic. EYES: Pupils equal round extraocular movements intact, conjunctiva are normal. ENT: Nares patent NECK: Normal range of motion LUNGS: No respiratory distress Musculoskeletal: Normal range of motion NEUROLOGICAL: Denies vision changes, numbness, tingling, or weakness. Friend says his speech is still slurred. PSYCH: Normal mood, normal affect. SKIN: Warm, Dry, normal turgor, no rashes or lesions noted. TRAVEL OUTSIDE OF THE [place] IN LAST 30 DAYS: No - Related Data Allergies/Adverse Reactions: No Known Allergies Allergy (Verified 07/18/17 15:41) Past Medical History - Social History Chew tobacco use (# tins/day): No Frequency of alcohol use: None Drug Abuse: None - Past Medical History Cardiac Medical History: Reports: Hx Hypertension - medicated Denies: Hx Heart Attack Pulmonary Medical History: Denies: Hx Asthma Neurological Medical History: Denies: Hx Cerebrovascular Accident, Hx Seizures Endocrine Medical History: Reports: Hx Diabetes Mellitus Type 2 Renal/ Medical History: Reports: Hx Renal Insufficiency. Denies: Hx Peritoneal Dialysis GI Medical History: Denies: Hx Hepatitis, Hx Hiatal Hernia, Hx Ulcer Musculoskeltal Medical History: Reports Hx Arthritis Infectious Medical History: Denies: Hx Hepatitis Past Surgical History: Reports: Hx Cholecystectomy - pacemaker, Hx Orthopedic Surgery - right knee implant, left shoulder implant. Denies: Hx Open Heart Surgery, Hx Pacemaker - Immunizations Hx Diphtheria, Pertussis, Tetanus Vaccination: Yes Physical Exam - Vital signs Vitals: Temp Pulse Resp BP Pulse Ox 97.4 F 62 16 133/108 H 100 12/15/17 17:21 12/15/17 17:21 12/15/17 17:21 12/15/17 17:21 12/15/17 17:21 Course - Vital Signs Vital signs: Temp Pulse Resp BP Pulse Ox 97.4 F 62 16 133/108 H 100 12/15/17 17:21 12/15/17 17:21 12/15/17 17:21 12/15/17 17:21 12/15/17 17:21 - Laboratory Laboratory results interpreted by me: 12/15/17 17:31 POC Glucose 130 H Doctor's Discharge - Discharge Referrals: ANKIT VALVERDE PA-C [Primary Care Provider] - Follow up as needed
[2017-12-15 18:26] LABS: ABSOLUTE BASOPHILS # (AUTO) 0.1 10^3/uL (0.0-0.2); ABSOLUTE MONOCYTES (AUTO) 0.4 10^3/uL (0.1-1.4); ABSOLUTE NEUT (AUTO) 5.7 10^3/uL (1.7-8.2); BASOPHILS % (AUTO) 0.6 % (0-2); EOSINOPHILS % (AUTO) 0.3 % (0-6); HEMOGLOBIN 10.2 g/dL (13.5-17.0); LYMPHOCYTES % (AUTO) 24.1 % (13-45); MEAN CORPUSCULAR HEMOGLOBIN 29.7 pg (27.0-33.4); MEAN CORPUSCULAR VOLUME 87 fl (80-97); MONOCYTES % (AUTO) 5.4 % (3-13); PLATELET COUNT 312 10^3/uL (150-450); RED BLOOD COUNT 3.43 10^6/uL (4.35-5.55); RED CELL DISTRIBUTION WIDTH 19.6 % (11.5-14.0); SEGMENTED NEUTROPHILS % (AUTO) 69.6 % (42-78); TOTAL CELLS COUNTED % (AUTO) 100 %; WHITE BLOOD COUNT 8.2 10^3/uL (4.0-10.5)
--- NOTE | 2017-12-15 18:43 | RADIOLOGY REPORT (SQ) ---
EXAM DESCRIPTION: CT HEAD WITHOUT COMPLETED DATE/TIME: 12/15/2017 6:23 pm REASON FOR STUDY: seizure COMPARISON: 10/07/2016 TECHNIQUE: Axial images acquired through the brain without intravenous contrast. Images reviewed wi th bone, brain and subdural windows. Additional sagittal and coronal reconstructions were generated. Images stored on PACS. All CT scanners at this facility use dose modulation, iterative reconstruction, and/or weight based d osing when appropriate to reduce radiation dose to as low as reasonably achievable (ALARA). [facility]: Dose Right [facility]: CareDose [facility]: Dose Right [facility]: Teradose 4D [facility]: [employer] RADIATION DOSE: CT Rad equipment meets quality standard of care and radiation dose reduction techniq ues were employed. CTDIvol: 23.1 mGy. DLP: 441 mGy-cm. mGy. LIMITATIONS: None. FINDINGS: VENTRICLES: Prominent ventricles secondary to involutional atrophy. CEREBRUM: Mild cortical atrophy. No masses. No hemorrhage. No midline shift. No evidence for acut e infarction. Areas of low density in the white matter most likely chronic small vessel ischemic martines ges. CEREBELLUM: No masses. No hemorrhage. No alteration of density. No evidence for acute infarction. EXTRAAXIAL SPACES: No fluid collections. No masses. ORBITS AND GLOBE: No intra- or extraconal masses. Normal contour of globe without masses. CALVARIUM: No fracture. PARANASAL SINUSES: No fluid or mucosal thickening. SOFT TISSUES: No mass or hematoma. OTHER: No other significant finding. IMPRESSION: MICROVASCULAR ISCHEMIA AND GENERALIZED ATROPHY. NO ACUTE IMAGING FINDINGS IN THE BRAIN EVIDENCE OF ACUTE STROKE: NO. COMMENT: Quality ID # [id number]: Final reports with documentation of one or more dose reduction techniques (e.g., Automated exposure control, adjustment of the mA and/or kV according to patient size, use of iterative reconstruction technique) TECHNICAL DOCUMENTATION: JOB ID: [id number] [employer]- All Rights Reserved Reading location - IP/workstation name: [email or web address]
--- NOTE | 2017-12-15 18:44 | RADIOLOGY REPORT (SQ) ---
EXAM DESCRIPTION: CHEST SINGLE VIEW COMPLETED DATE/TIME: 12/15/2017 6:25 pm REASON FOR STUDY: ams COMPARISON: 11/02/2014 EXAM PARAMETERS: NUMBER OF VIEWS: One view. TECHNIQUE: Single frontal radiographic view of the chest acquired. RADIATION DOSE: NA LIMITATIONS: None. FINDINGS: LUNGS AND PLEURA: No opacities, masses or pneumothorax. No pleural effusion. MEDIASTINUM AND HILAR STRUCTURES: No masses. Contour normal. HEART AND VASCULAR STRUCTURES: Heart normal in size. Normal vasculature. BONES: No acute findings. HARDWARE: Pacemaker. OTHER: No other significant finding. IMPRESSION: NO ACUTE RADIOGRAPHIC FINDING IN THE CHEST. TECHNICAL DOCUMENTATION: JOB ID: [id number] [employer]- All Rights Reserved Reading location - IP/workstation name: [email or web address]
[2017-12-15 18:47] LABS: ALANINE AMINOTRANSFERASE 18 U/L (21-72); ALBUMIN 3.9 g/dL (3.5-5.0); ALKALINE PHOSPHATASE 91 U/L (38-126); ANION GAP 14 (5-19); ASPARTATE AMINO TRANSFERASE 15 U/L (17-59); BILIRUBIN,DIRECT 0.3 mg/dL (0.0-0.4); BILIRUBIN,TOTAL 0.5 mg/dL (0.2-1.3); BLOOD UREA NITROGEN 94 mg/dL (7-20); CALCIUM 9.3 mg/dL (8.4-10.2); CARBON DIOXIDE 21 mmol/L (22-30); CHLORIDE 101 mmol/L (98-107); GLUCOSE 121 mg/dL (75-110); SODIUM 136.2 mmol/L (137-145); TOTAL PROTEIN 7.5 g/dL (6.3-8.2)
[2017-12-15 18:51] LABS: POTASSIUM 6.3 mmol/L (3.6-5.0)
[2017-12-15] MEDS ORDERED: CALCIUM GLUCONATE 1000 MG/10 ML INJ IV ONE (19:03)
[2017-12-15] MEDS ORDERED: SODIUM POLYSTYRENE SULFONATE 15 GM/60 ML PO ONE (19:03)
[2017-12-15] MEDS ORDERED: ALBUTEROL SULFATE 0.083% NEB 2.5 MG/3 ML AMPUL NEB ONE (19:04)
[2017-12-15] MEDS ORDERED: SODIUM BICARBONATE 8.4% INJ 50 MEQ/50 ML DISP.SYRIN IV ONE ×2 (19:04→19:05)
--- NOTE | 2017-12-15 19:05 | ER Document Report ---
ED General - General Mode of Arrival: Wheelchair Information source: Patient, Friend TRAVEL OUTSIDE OF THE [place] IN LAST 30 DAYS: No <WILLIAM ELAINE - Last Filed: 12/15/17 20:30> <MYLES CARMONA - Last Filed: 12/15/17 22:10> - General Chief Complaint: Probable Seizure Stated Complaint: POSSIBLE SEIZURE Time Seen by Provider: 12/15/17 17:30 Notes: Patient is an 87-year-old male with HTN and a pacemaker presents emergency department complaining of multiple symptoms including headache and abnormal behavior. Friend states he was taking the patient to visit his at [facility] when he began to "zone out" and move his left arm up and down approximately 6-8x, stopped, and moved his right hand in the same motion approximately 3x. He states the patient's head then rolled to the side and it appeared he became unconscious. He states he called the patients named and he quickly "came to" but the patient had no recollection of what happened. Friend also mentions the patient having a severe headache the past couple of weeks and slurred speech the last 2 days. Friend states the patient would intermittently slur his words at the end of a sentence, describing this as speaking jibberish. Patient states he feels he has a frog in his throat. Patient's PCP is Dr. Valverde. Patient states he had his pacemaker places approximately 6 months ago. (WILLIAM ELAINE) - Related Data Allergies/Adverse Reactions: No Known Allergies Allergy (Verified 07/18/17 15:41) Past Medical History - General Information source: Patient, Friend - Social History Smoking Status: Never Smoker Chew tobacco use (# tins/day): No Frequency of alcohol use: None Drug Abuse: None Family History: Reviewed & Not Pertinent Patient has suicidal ideation: No Patient has homicidal ideation: No - Past Medical History Cardiac Medical History: Reports: Hx Hypertension - medicated Endocrine Medical History: Reports: Hx Diabetes Mellitus Type 2 Renal/ Medical History: Reports: Hx Renal Insufficiency Musculoskeletal Medical History: Reports Hx Arthritis Past Surgical History: Reports: Hx Cholecystectomy - pacemaker, Hx Orthopedic Surgery - right knee implant, left shoulder implant - Immunizations Hx Diphtheria, Pertussis, Tetanus Vaccination: Yes <WILLIAM ELAINE - Last Filed: 12/15/17 20:30> Review of Systems - Review of Systems Constitutional: No symptoms reported EENT: No symptoms reported Cardiovascular: No symptoms reported Respiratory: No symptoms reported Gastrointestinal: No symptoms reported Genitourinary: No symptoms reported Male Genitourinary: No symptoms reported Musculoskeletal: No symptoms reported Skin: No symptoms reported Hematologic/Lymphatic: No symptoms reported Neurological/Psychological: See HPI -: Yes All other systems reviewed and negative <ARGENTINA,TAMSHEA - Last Filed: 12/15/17 20:30> Physical Exam - General General appearance: Appears well, Alert In distress: None - HEENT Head: Normocephalic, Atraumatic Eyes: Normal Conjunctiva: Normal Extraocular movements intact: Yes Pupils: PERRL Mucous membranes: Normal Neck: Normal. No: Carotid bruit - Respiratory Respiratory status: No respiratory distress Chest status: Nontender Breath sounds: Normal Chest palpation: Normal - Cardiovascular Rhythm: Regular Heart sounds: Normal auscultation Murmur: No Friction rub: No Gallop: None auscultated - Abdominal Inspection: Normal Distension: No distension Bowel sounds: Normal Tenderness: Nontender Organomegaly: No organomegaly - Back Back: Normal - Extremities General upper extremity: Normal ROM General lower extremity: Normal ROM - Neurological Neuro grossly intact: Yes Cognition: Normal Orientation: AAOx4 [place] Coma Scale Eye Opening: Spontaneous [place] Coma Scale Verbal: Oriented [place] Coma Scale Motor: Obeys Commands Armani Coma Scale Total: 15 Speech: Normal - Psychological Associated symptoms: Normal affect, Normal mood - Skin Skin Temperature: Warm Skin Moisture: Dry <ARGENTINA,TAMSHEA - Last Filed: 12/15/17 20:30> - Vital signs Vitals: Temp Pulse Resp BP Pulse Ox 97.4 F 62 16 133/108 H 100 12/15/17 17:21 12/15/17 17:21 12/15/17 17:21 12/15/17 17:21 12/15/17 17:21 Course - Laboratory Result Diagrams: 12/15/17 18:12 12/15/17 18:12 <ARGENTINA,MAURICESHEA - Last Filed: 12/15/17 20:30> - Laboratory Result Diagrams: 12/15/17 18:12 12/15/17 18:12 - Diagnostic Test Radiology reviewed: Image reviewed, Reports reviewed - Chest x-ray is unremarkable. CT scan of the head shows chronic microvascular ischemic changes and atrophy. There are no acute findings in either study. - EKG Interpretation by Me EKG shows normal: Jewett, Intervals, QRS Complexes, ST-T Waves Rate: Normal - 71 Rhythm: Other - A-V dual-paced rhythm When compared to previous EKG there are: Changes noted - Most recent EKG was done prior to the pacemaker and showed a third-degree heart block at that time. - Consults Dr. Simmons Time consulted: 22:00 Consulted provider: will come to ER <MYLES CARMONA - Last Filed: 12/15/17 22:10> - Re-evaluation Re-evalutation: 12/15/17 20:19 The David catheter was placed without difficulty while the patient was coughing , and 500 mL's of quite cloudy saravia white urine with considerable sediment was drained. (MYLES CARMONA) - Vital Signs Vital signs: Temp Pulse Resp BP Pulse Ox 97.4 F 62 19 132/64 H 100 12/15/17 17:21 12/15/17 17:21 12/15/17 20:00 12/15/17 19:46 12/15/17 20:00 - Laboratory Laboratory results interpreted by me: 12/15/17 12/15/17 12/15/17 17:31 18:12 18:12 RBC 3.43 L Hgb 10.2 L Hct 30.0 L RDW 19.6 H Sodium 136.2 L Potassium 6.3 H* Carbon Dioxide 21 L BUN 94 H Creatinine 6.38 H Est GFR ( Amer) 10 L Est GFR (Non-Af Amer) 8 L Glucose 121 H POC Glucose 130 H AST 15 L ALT 18 L Urine Protein Urine Blood Ur Leukocyte Esterase Urine Ascorbic Acid 12/15/17 20:17 RBC Hgb Hct RDW Sodium Potassium Carbon Dioxide BUN Creatinine Est GFR ( Amer) Est GFR (Non-Af Amer) Glucose POC Glucose AST ALT Urine Protein 100 H Urine Blood SMALL H Ur Leukocyte Esterase MODERATE H Urine Ascorbic Acid 20 H Critical Care Note - Critical Care Note Total time excluding time spent on procedures (mins): 45 <MYLES CARMONA - Last Filed: 12/15/17 22:10> Discharge <WILLIAM ELAINE - Last Filed: 12/15/17 20:30> - Discharge Admitting Provider: Hospitalist Unit Admitted: [facility] <MYLES CARMONA - Last Filed: 12/15/17 22:10> - Discharge Clinical Impression: Dehydration, Hyperkalemia, Urinary retention, Transient ischemic attack (TIA) Acute renal failure Qualifiers: Acute renal failure type: unspecified Qualified Code(s): N17.9 - Acute kidney failure, unspecified Urinary tract infection Qualifiers: Urinary tract infection type: site unspecified Hematuria presence: with hematuria Qualified Code(s): N39.0 - Urinary tract infection, site not specified Condition: Good Disposition: ADMITTED INPATIENT Referrals: ANKIT VALVERDE PA-C [Primary Care Provider] - Follow up as needed Scribe Attestation: 12/15/17 19:52 I personally performed the services described in the documentation, reviewed and edited the documentation which was dictated to the scribe in my presence, and it accurately records my words and actions. (MYLES CARMONA) Scribe Documentation - Scribe Written by Scribe:: Evelyn Winters, 12/15/2017 19:23 acting as scribe for :: Terrance <WILLIAM ELAINE - Last Filed: 12/15/17 20:30>
[2017-12-15] MEDS ORDERED: INSULIN REG, HUMAN 100 UNIT/ML 3 ML VIAL (PYX) IV ONE (19:19)
[2017-12-15] MEDS ORDERED: DEXTROSE 50%-WATER 25 GM/50 ML DISP.SYRIN IV ONE (19:19)
[2017-12-15] MEDS ORDERED: DEXTROSE 5%-NORMAL SALINE 1,000 ML IV ONE (19:20)
[2017-12-15 20:39] LABS: APPEARANCE,URINE TURBID; BILIRUBIN,URINE NEGATIVE (NEGATIVE); COLOR,URINE YELLOW; GLUCOSE, URINE NEGATIVE (NEGATIVE); KETONES,URINE NEGATIVE (NEGATIVE); LEUKOCYTE ESTERASE,URINE MODERATE (NEGATIVE); NITRITE,URINE NEGATIVE (NEGATIVE); PROTEIN,URINE 100 mg/dL (NEGATIVE); URINE SPECIFIC GRAVITY 1.011; UROBILINOGEN,URINE NEGATIVE mg/dL (<2.0)
[2017-12-15] MEDS ORDERED: LEVOFLOXACIN 750 MG/D5W RTU 750 MG/150 ML RTUPB IV ONE (21:08)
[2017-12-15] MEDS ORDERED: DEXTROSE 40% GEL 15 GM TUBE PO PRN ×2 (22:08)
[2017-12-15] MEDS ORDERED: DEXTROSE 50%-WATER 25 GM/50 ML DISP.SYRIN IV PRN ×2 (22:08)
[2017-12-15] MEDS ORDERED: ACETAMINOPHEN 325 MG TABLET PO PRN (22:08)
[2017-12-15] MEDS ORDERED: GLUCAGON,HUMAN RECOMB 1 MG INJ IM PRN (22:08)
[2017-12-15] MEDS ORDERED: MAG HYDROX/AL HYDROX/SIMETH SUSP 30 ML UDCUP PO PRN (22:08)
[2017-12-15] MEDS ORDERED: INSULIN LISPRO 100 UNIT/ML 3 ML VIAL SUBCUT PRN (22:08)
[2017-12-15] MEDS ORDERED: IPRATROPIUM/ALBUTEROL 0.5-2.5 MG/3 ML AMPUL NEB PRN (22:08)
[2017-12-15] MEDS ORDERED: IPRATROPIUM/ALBUTEROL 0.5-2.5 MG/3 ML AMPUL NEB ONE (22:08)
[2017-12-15] MEDS ORDERED: CEFTRIAXONE 1 GM/D5W RTU 1 GM/50 ML RTUPB IV ONE (23:00)
[2017-12-15 23:37] LABS: URINE AMPHETAMINES SCREEN NEGATIVE; URINE BARBITURATES SCREEN NEGATIVE; URINE PHENCYCLIDINE SCREEN NEGATIVE
[2017-12-15 23:49] LABS: URINE BENZODIAZEPINES SCREEN NEGATIVE
[2017-12-15 23:52] LABS: URINE METHADONE SCREEN NEGATIVE
[2017-12-16] MEDS ORDERED: CEFTRIAXONE 1 GM/D5W RTU 1 GM/50 ML RTUPB IV ONE (00:40)
[2017-12-16 01:12] LABS: CREATINE KINASE MB 1.48 ng/mL (<4.55); TROPONIN I 0.014 ng/mL
[2017-12-16 02:29] LABS: ANION GAP 15 (5-19); BLOOD UREA NITROGEN 92 mg/dL (7-20); CALCIUM 9.3 mg/dL (8.4-10.2); CARBON DIOXIDE 20 mmol/L (22-30); CHLORIDE 105 mmol/L (98-107); GLUCOSE 117 mg/dL (75-110); SODIUM 140.1 mmol/L (137-145)
[2017-12-16] MEDS: HEPARIN SOD (PORCINE) 5,000 UNIT/ML 1 ML SYRINGE SUBCUT SCH ×3 (05:42→21:46)
[2017-12-16 06:27] LABS: ABSOLUTE BASOPHILS # (AUTO) 0.1 10^3/uL (0.0-0.2); ABSOLUTE EOSINOPHILS # (AUTO) 0.1 10^3/uL (0.0-0.6); ABSOLUTE LYMPHOCYTES (AUTO) 1.9 10^3/uL (0.5-4.7); ABSOLUTE MONOCYTES (AUTO) 0.5 10^3/uL (0.1-1.4); ABSOLUTE NEUT (AUTO) 5.5 10^3/uL (1.7-8.2); BASOPHILS % (AUTO) 0.6 % (0-2); EOSINOPHILS % (AUTO) 0.7 % (0-6); HEMATOCRIT 27.3 % (37.9-51.0); HEMOGLOBIN 9.3 g/dL (13.5-17.0); LYMPHOCYTES % (AUTO) 23.8 % (13-45); MEAN CORPUSCULAR HEMOGLOBIN 29.5 pg (27.0-33.4); MEAN CORPUSCULAR HGB CONC 34.1 g/dL (32.0-36.0); MEAN CORPUSCULAR VOLUME 87 fl (80-97); MONOCYTES % (AUTO) 5.9 % (3-13); PLATELET COUNT 261 10^3/uL (150-450); RED BLOOD COUNT 3.15 10^6/uL (4.35-5.55); RED CELL DISTRIBUTION WIDTH 19.4 % (11.5-14.0); TOTAL CELLS COUNTED % (AUTO) 100 %
[2017-12-16 06:48] LABS: ANION GAP 13 (5-19); BLOOD UREA NITROGEN 89 mg/dL (7-20); CALCIUM 8.9 mg/dL (8.4-10.2); CARBON DIOXIDE 20 mmol/L (22-30); CHLORIDE 105 mmol/L (98-107); CREATINE KINASE 42 U/L (55-170); GLUCOSE 111 mg/dL (75-110); POTASSIUM 5.4 mmol/L (3.6-5.0); SODIUM 137.6 mmol/L (137-145)
[2017-12-16 07:00] LABS: CREATINE KINASE MB 1.34 ng/mL (<4.55); TROPONIN I 0.02 ng/mL
--- NOTE | 2017-12-16 07:33 | PDOC H&P ---
History of Present Illness Admission Date/PCP: 12/15/17 22:13 ANKIT VALVERDE PA-C Patient complains of: Altered mental status History of Present Illness: ANNA WILLARD is a 87 year old male with a past medical history of diabetes, osteoarthritis, hypertension, permanent pacemaker, prostatic hypertrophy, and stage III chronic kidney disease. He presents with 4 hours of confusion. In the emergency room he is found to have urinary retention, urinary tract infection, acute on chronic renal failure, and hyperkalemia. He is a poor historian but at baseline mental status unable to provide significant history. In the emergency room he started on empiric antibiotics, IV fluids and referred to the hospitalist for admission. Past Medical History Cardiac Medical History: Reports: Hypertension - medicated Denies: Myocardial Infarction Pulmonary Medical History: Denies: Asthma Neurological Medical History: Denies: Seizures Endocrine Medical History: Reports: Diabetes Mellitus Type 2 GI Medical History: Denies: Hepatitis, Hiatal Hernia Musculoskeltal Medical History: Reports: Arthritis Psychiatric Medical History: Denies: Depression Hematology: Denies: Anemia, Sickle Cell Disease Past Surgical History Past Surgical History: Reports: Cholecystectomy - pacemaker, Orthopedic Surgery - right knee implant, left shoulder implant, Pacemaker Social History Information Source: Relative, Emergency Med Personnel, [facility] Records Smoking Status: Never Smoker Frequency of Alcohol Use: None Hx Recreational Drug Use: No Drugs: None Hx Prescription Drug Abuse: No - Advance Directive Resuscitation Status: Full Code Family History Family History: Other - Unobtainable Parental Family History Reviewed: Yes Children Family History Reviewed: Yes Sibling(s) Family History Reviewed.: Yes Medication/Allergy Home Medications: Aspirin [Aspirin 81 mg Chewable Tablet] 81 mg PO DAILY 10/29/14 Finasteride [Proscar 5 mg Tablet] 5 mg PO DAILY 10/29/14 Furosemide [Lasix 40 mg Tablet] 40 mg PO QAM 10/29/14 Glipizide [Glipizide Xl] 2.5 mg PO DAILY 10/29/14 Levothyroxine Sodium [Synthroid] 50 mcg PO DAILY 10/29/14 Metoprolol Succinate [Toprol Xl 50 mg Tab.sr] 50 mg PO DAILY 10/29/14 Multivitamin [Multivitamins] 1 each PO DAILY 10/29/14 Polyethylene Glycol 3350 [Miralax] 119 units PO Q48HP PRN 08/29/15 Tamsulosin HCl [Flomax 0.4 mg Cap.sr] 0.4 mg PO DAILY 10/29/14 Acidoph/L.bulg/Bif.b/S.thermop [Bacid Caplet] 1 tab PO DAILY #30 tablet Ciprofloxacin HCl [Cipro] 250 mg PO DAILY #10 tablet 11/05/14 Docusate Sodium [Colace 100 mg Capsule] 100 mg PO BID #60 capsule 11/05/14 Famotidine [Pepcid 20 mg Tablet] 20 mg PO DAILY #60 tablet 11/05/14 Lidocaine [Lidoderm 5% (700 mg) Transdermal Patch] 1 patch TP DAILY #30 adh..patch 11/05/14 Metronidazole [Flagyl 500 mg Tablet] 500 mg PO TID #30 tablet 11/05/14 Oxycodone HCl [Oxy-Ir 5 mg Tablet] 5 mg PO Q8HP PRN #10 tablet 11/05/14 Polyethylene Glycol 3350 [Miralax Powder 17 gm/Packet] 17 gm PO DAILY #30 powd.pack 11/05/14 Prednisone [Deltasone 20 mg Tablet] 3 tab PO DAILY 5 Days tablet 07/18/17 Allergies/Adverse Reactions: No Known Allergies Allergy (Verified 07/18/17 15:41) Review of Systems ROS unobtainable: Due to mental status Physical Exam Vital Signs: Temp Pulse Resp BP Pulse Ox 98.0 F 66 21 H 117/46 L 99 12/16/17 03:35 12/16/17 03:35 12/16/17 03:35 12/16/17 03:35 12/16/17 03:35 Intake & Output 12/14/17 12/15/17 12/16/17 11:59 11:59 11:59 Intake Total 1050 Output Total 975 Balance 75 Weight 93.4 kg General appearance: PRESENT: no acute distress, cooperative, hard of hearing. ABSENT: mild distress, severe distress Head exam: PRESENT: atraumatic, normocephalic Eye exam: PRESENT: conjunctiva pink, EOMI, PERRLA. ABSENT: scleral icterus Ear exam: PRESENT: normal external ear exam Mouth exam: PRESENT: moist, tongue midline Neck exam: ABSENT: carotid bruit, JVD, lymphadenopathy, thyromegaly Respiratory exam: PRESENT: clear to auscultation rossana. ABSENT: rales, rhonchi, wheezes Cardiovascular exam: PRESENT: RRR. ABSENT: diastolic murmur, rubs, systolic murmur Pulses: PRESENT: normal dorsalis pedis pul Vascular exam: PRESENT: normal capillary refill GI/Abdominal exam: PRESENT: normal bowel sounds, soft. ABSENT: distended, guarding, mass, organolmegaly, rebound, tenderness Rectal exam: PRESENT: deferred Extremities exam: PRESENT: full ROM. ABSENT: calf tenderness, clubbing, pedal edema Neurological exam: PRESENT: alert, awake, oriented to person, oriented to place , CN II-XII grossly intact. ABSENT: motor sensory deficit Psychiatric exam: PRESENT: appropriate affect, normal mood. ABSENT: homicidal ideation, suicidal ideation Skin exam: PRESENT: dry, intact, warm. ABSENT: cyanosis, rash Results Laboratory Results: 12/16/17 06:19 12/16/17 06:19 12/16/17 12/16/17 12/16/17 00:33 06:19 06:19 WBC 8.0 RBC 3.15 L Hgb 9.3 L Hct 27.3 L MCV 87 MCH 29.5 MCHC 34.1 RDW 19.4 H Plt Count 261 Seg Neutrophils % 69.0 Lymphocytes % 23.8 Monocytes % 5.9 Eosinophils % 0.7 Basophils % 0.6 Absolute Neutrophils 5.5 Absolute Lymphocytes 1.9 Absolute Monocytes 0.5 Absolute Eosinophils 0.1 Absolute Basophils 0.1 Sodium 140.1 137.6 Potassium 5.0 D 5.4 H Chloride 105 105 Carbon Dioxide 20 L 20 L Anion Gap 15 13 BUN 92 H 89 H Creatinine 6.22 H 5.91 H Est GFR ( Amer) 10 L 11 L Est GFR (Non-Af Amer) 9 L 9 L Glucose 117 H 111 H Calcium 9.3 8.9 12/16/17 12/16/17 12/16/17 00:33 00:33 06:19 Creatine Kinase 45 L 42 L CK-MB (CK-2) 1.48 Troponin I 0.014 12/16/17 06:19 Creatine Kinase CK-MB (CK-2) 1.34 Troponin I 0.020 Impressions: Head CT 12/15/17 17:57 IMPRESSION: MICROVASCULAR ISCHEMIA AND GENERALIZED ATROPHY. NO ACUTE IMAGING FINDINGS IN THE BRAIN EVIDENCE OF ACUTE STROKE: NO. Chest X-Ray 12/15/17 17:58 IMPRESSION: NO ACUTE RADIOGRAPHIC FINDING IN THE CHEST. Assessment & Plan - Diagnosis (1) Acute renal failure Qualifiers: Acute renal failure type: unspecified Qualified Code(s): N17.9 - Acute kidney failure, unspecified Is this a current diagnosis for this admission?: Yes Plan: Acute on chronic, possibly secondary to urinary bladder obstruction. Catheter placed, IV fluid challenge, follow-up chemistry and nephrology consult. (2) Hyperkalemia Is this a current diagnosis for this admission?: Yes Plan: Calcium, insulin, albuterol, lactulose, follow-up chemistry (3) Urinary retention Is this a current diagnosis for this admission?: Yes Plan: Secondary to prostate hypertrophy. Continue Daivd, resume tamsulosin and Proscar (4) Urinary tract infection Qualifiers: Urinary tract infection type: site unspecified Hematuria presence: with hematuria Qualified Code(s): N39.0 - Urinary tract infection, site not specified; R31.9 - Hematuria, unspecified; R31.9 - Hematuria, unspecified Is this a current diagnosis for this admission?: Yes Plan: Empiric antibiotic, follow-up blood and urine culture. - Time Time Spent: 50 to 70 Minutes - Inpatient Certification Medical Necessity: Need for Nebulizer Therapy and Monitoring of Response
--- NOTE | 2017-12-16 07:56 | EKG REPORT ---
SEVERITY:- ABNORMAL ECG - A-V DUAL-PACED RHYTHM WITH SOME INHIBITION : Confirmed by: Khari Lemon MD 16-Dec-2017 07:55:39
[2017-12-16] MEDS ORDERED: LACTULOSE SYRUP 20 GM/30 ML UDCUP PO ONE (08:00)
[2017-12-16] MEDS: ASPIRIN 81 MG TABLET, CHEWABLE PO SCH (09:09)
[2017-12-16] MEDS: LEVOTHYROXINE SODIUM 0.05 MG TABLET PO SCH (09:09)
[2017-12-16] MEDS: FINASTERIDE 5 MG TABLET PO SCH (09:09)
[2017-12-16] MEDS: METOPROLOL SUCCINATE 50 MG TAB.SR.24H PO SCH (09:10)
[2017-12-16] MEDS: TAMSULOSIN HCL 0.4 MG CAP.SR.24H PO SCH (09:10)
[2017-12-16] MEDS: DOCUSATE SODIUM 100 MG CAPSULE PO SCH ×2 (09:10→17:13)
[2017-12-16] MEDS ORDERED: DOCUSATE SODIUM 100 MG CAPSULE PO SCH (10:00)
[2017-12-16 14:46] LABS: CREATINE KINASE MB 1.57 ng/mL (<4.55); TROPONIN I 0.019 ng/mL
--- NOTE | 2017-12-16 15:33 | PDOC CONSULTATION ---
Consultation Consult Date: 12/16/17 Consult reason:: ARF History of Present Illness Admission Date/PCP: 12/15/17 22:13 ANKIT VALVERDE PA-C History of Present Illness: ANNA WILLARD is a 87 year old male with a past medical history of diabetes, osteoarthritis, hypertension, prostatic hypertrophy, and stage III chronic kidney disease. He is followed by Dr. Ramos for his kidneys and his baseline creatinine is 2.0. He was brought to the ER for confusion that had been happening for 4 hours. In the ER a chest x-ray, head CT and labs were done. The head CT and chest x-ray showed no acute finding. Labs showed an elevated creatinine of 6.3 with an elevated potassium of the same. He was found to have urinary retention and a UTI. In the emergency room he started on empiric antibiotics, IV fluids and a catheter was placed. Since the ER he has produced over 2L of urine and he is no longer confused. Creatinine was trending down from 6.3 to 5.9. At the time of examination he denied chest pain, SOB, n/v/d/c. He also was not able to provide much history due to his poor memory. Past Medical History Cardiac Medical History: Denies: Myocardial Infarction Pulmonary Medical History: Denies: Asthma Neurological Medical History: Denies: Seizures Endocrine Medical History: Reports: Diabetes Mellitus Type 2 GI Medical History: Denies: Hepatitis, Hiatal Hernia Musculoskeltal Medical History: Reports: Arthritis Psychiatric Medical History: Denies: Depression Past Surgical History Past Surgical History: Reports: Cholecystectomy - pacemaker, Orthopedic Surgery - right knee implant, left shoulder implant, Pacemaker Social History Smoking Status: Never Smoker Frequency of Alcohol Use: None Hx Recreational Drug Use: No Drugs: None Hx Prescription Drug Abuse: No - Advance Directive Resuscitation Status: Full Code Family History Parental Family History Reviewed: No Children Family History Reviewed: NA Sibling(s) Family History Reviewed.: NA Medication/Allergy Home Medications: Aspirin [Aspirin 81 mg Chewable Tablet] 81 mg PO QHS 12/16/17 Fesoterodine Fumarate [Toviaz] 8 mg PO QAM 12/16/17 Finasteride [Proscar 5 mg Tablet] 5 mg PO QHS 12/16/17 Furosemide [Lasix 20 mg Tablet] 20 mg PO MOWEFR@1000 12/16/17 Glipizide [Glipizide ER] 2.5 mg PO Q2D 12/16/17 Levothyroxine Sodium [Synthroid] 50 mcg PO Q6AM 12/16/17 Lisinopril [Prinivil 5 mg Tablet] 5 mg PO QPM 12/16/17 Magnesium Oxide [Mag-Ox 400 mg Tablet] 400 mg PO TID 12/16/17 Metoprolol Succinate [Toprol Xl 50 mg Tab.sr] 50 mg PO QPM 12/16/17 Multivitamin [Multiple Vitamins] 1 each PO QAM 12/16/17 Nitrofurantoin Macrocrystal [Macrodantin] 100 mg PO QAM 12/16/17 Polyethylene Glycol 3350 [Miralax Powder 17 gm/Packet] 1 packet PO HSP PRN 12/16 Tamsulosin HCl [Flomax 0.4 mg Cap.sr] 0.4 mg PO QPM 12/16/17 Allergies/Adverse Reactions: No Known Allergies Allergy (Verified 07/18/17 15:41) Review of Systems Constitutional: ABSENT: chills, fever(s) Ears: PRESENT: other - -poor hearing Nose, Mouth, and Throat: ABSENT: headache(s) Cardiovascular: ABSENT: chest pain, dyspnea on exertion, edema, orthropnea, palpitations Gastrointestinal: ABSENT: abdominal pain, constipation, diarrhea, nausea, vomiting Genitourinary: PRESENT: difficulty urinating, dysuria Neurological: PRESENT: confusion, memory loss - 44, weakness Physical Exam Vital Signs: Temp Pulse Resp BP Pulse Ox 97.8 F 58 L 16 103/57 L 100 12/16/17 12:16 12/16/17 12:16 12/16/17 12:16 12/16/17 12:16 12/16/17 12:16 Intake & Output 12/15/17 12/16/17 12/17/17 06:59 06:59 06:59 Intake Total 1050 Output Total 1225 Balance -175 Weight 93.4 kg General appearance: PRESENT: no acute distress, hard of hearing, well-developed , well-nourished Mouth exam: PRESENT: moist. ABSENT: neck supple Neck exam: PRESENT: full ROM. ABSENT: JVD Respiratory exam: PRESENT: clear to auscultation rossana. ABSENT: accessory muscle use, crackles, rhonchi, stridor, wheezes Cardiovascular exam: PRESENT: RRR, +S1, +S2 GI/Abdominal exam: PRESENT: soft. ABSENT: tenderness Extremities exam: ABSENT: pedal edema, tenderness, +1 edema, +2 edema Musculoskeletal exam: PRESENT: normal inspection. ABSENT: tenderness Neurological exam: PRESENT: alert, awake, oriented to person, oriented to place , oriented to time, oriented to situation Skin exam: PRESENT: dry, intact, warm Results Laboratory Results: 12/16/17 06:19 12/16/17 06:19 12/16/17 12/16/17 12/16/17 00:33 06:19 06:19 WBC 8.0 RBC 3.15 L Hgb 9.3 L Hct 27.3 L MCV 87 MCH 29.5 MCHC 34.1 RDW 19.4 H Plt Count 261 Seg Neutrophils % 69.0 Lymphocytes % 23.8 Monocytes % 5.9 Eosinophils % 0.7 Basophils % 0.6 Absolute Neutrophils 5.5 Absolute Lymphocytes 1.9 Absolute Monocytes 0.5 Absolute Eosinophils 0.1 Absolute Basophils 0.1 Sodium 140.1 137.6 Potassium 5.0 D 5.4 H Chloride 105 105 Carbon Dioxide 20 L 20 L Anion Gap 15 13 BUN 92 H 89 H Creatinine 6.22 H 5.91 H Est GFR ( Amer) 10 L 11 L Est GFR (Non-Af Amer) 9 L 9 L Glucose 117 H 111 H Calcium 9.3 8.9 12/16/17 12/16/17 12/16/17 00:33 00:33 06:19 Creatine Kinase 45 L 42 L CK-MB (CK-2) 1.48 Troponin I 0.014 12/16/17 12/16/17 06:19 13:25 Creatine Kinase CK-MB (CK-2) 1.34 1.57 Troponin I 0.020 0.019 Impressions: Head CT 12/15/17 17:57 IMPRESSION: MICROVASCULAR ISCHEMIA AND GENERALIZED ATROPHY. NO ACUTE IMAGING FINDINGS IN THE BRAIN EVIDENCE OF ACUTE STROKE: NO. Chest X-Ray 12/15/17 17:58 IMPRESSION: NO ACUTE RADIOGRAPHIC FINDING IN THE CHEST. Assessment & Plan - Diagnosis (1) Acute renal failure Qualifiers: Acute renal failure type: unspecified Qualified Code(s): N17.9 - Acute kidney failure, unspecified Is this a current diagnosis for this admission?: Yes Plan: nonoliguric, due to urinary retention most likely from BPH. Other factors include a UTI. Continue with the current ayala catheter, will look to start Normal Saline at 75mL an hour. All medications should be renal dosed for a GFR of less than 25. No indication HEAD OF LOSS PREVENTION. (2) Urinary retention Is this a current diagnosis for this admission?: Yes Plan: continue with ayala catheter, recommend he follows up with a urologist. (3) Urinary tract infection Qualifiers: Urinary tract infection type: site unspecified Hematuria presence: with hematuria Qualified Code(s): N39.0 - Urinary tract infection, site not specified; R31.9 - Hematuria, unspecified; R31.9 - Hematuria, unspecified Is this a current diagnosis for this admission?: Yes Plan: on antibiotics (4) CKD (chronic kidney disease), stage IV Plan: baseline is 2.0 (5) HTN (hypertension) Plan: currently controlled (7) Anemia Plan: will begin work up
--- NOTE | 2017-12-16 16:08 | PDOC PROGRESS REPORT ---
Subjective Progress Note for:: 12/16/17 Subjective:: 87-year-old male past medical history of diabetes, osteoarthritis, hypertension , prostatic hypertrophy, stage III CKD. Patient presented to ED with 4 hours of confusion. In the emergency room he was found to have urinary retention, UTI , she is on chronic renal failure and hyperkalemia. CT head did not show any acute abnormalities. Patient was found to have a UTI and urinary retention. David catheter was placed and patient produced 2 L of urine. Mental status improved after David catheter placement. Patient was found to have a creatinine of 6.3 which improved to 5.9. His baseline is 2. Patient is seen as outpatient by director packaging for his CKD. 12/16/2017. On my encounter patient is sitting on the recliner talking with his friend who sitting on the bed. Patient is very pleasant, alert and oriented and cooperative with physical examination. He denies any fever, chills , nausea, vomiting, diarrhea, constipation or any urinary symptoms. Reason For Visit: ARF HYPERKALEMIA UTI DEMENTIA Physical Exam Vital Signs: Temp Pulse Resp BP Pulse Ox 97.8 F 63 16 103/57 L 100 12/16/17 12:16 12/16/17 14:00 12/16/17 12:16 12/16/17 12:16 12/16/17 12:16 Intake & Output 12/15/17 12/16/17 12/17/17 06:59 06:59 06:59 Intake Total 1050 Output Total 1225 Balance -175 Weight 93.4 kg General appearance: PRESENT: no acute distress, well-developed, well-nourished Head exam: PRESENT: atraumatic, normocephalic Eye exam: PRESENT: conjunctiva pink, EOMI, PERRLA. ABSENT: scleral icterus Ear exam: PRESENT: normal external ear exam Mouth exam: PRESENT: moist, tongue midline Neck exam: ABSENT: carotid bruit, JVD, lymphadenopathy, thyromegaly Respiratory exam: PRESENT: clear to auscultation rossana. ABSENT: rales, rhonchi, wheezes Cardiovascular exam: PRESENT: RRR. ABSENT: diastolic murmur, rubs, systolic murmur Pulses: PRESENT: normal dorsalis pedis pul Vascular exam: PRESENT: normal capillary refill GI/Abdominal exam: PRESENT: normal bowel sounds, soft. ABSENT: distended, guarding, mass, organolmegaly, rebound, tenderness Rectal exam: PRESENT: deferred Extremities exam: PRESENT: full ROM. ABSENT: calf tenderness, clubbing, pedal edema Neurological exam: PRESENT: alert, awake, oriented to person, oriented to place , oriented to time, oriented to situation, CN II-XII grossly intact. ABSENT: motor sensory deficit Psychiatric exam: PRESENT: appropriate affect, normal mood. ABSENT: homicidal ideation, suicidal ideation Skin exam: PRESENT: dry, intact, warm. ABSENT: cyanosis, rash Results Laboratory Results: 12/16/17 06:19 12/16/17 06:19 12/16/17 12/16/17 12/16/17 00:33 06:19 06:19 WBC 8.0 RBC 3.15 L Hgb 9.3 L Hct 27.3 L MCV 87 MCH 29.5 MCHC 34.1 RDW 19.4 H Plt Count 261 Seg Neutrophils % 69.0 Lymphocytes % 23.8 Monocytes % 5.9 Eosinophils % 0.7 Basophils % 0.6 Absolute Neutrophils 5.5 Absolute Lymphocytes 1.9 Absolute Monocytes 0.5 Absolute Eosinophils 0.1 Absolute Basophils 0.1 Sodium 140.1 137.6 Potassium 5.0 D 5.4 H Chloride 105 105 Carbon Dioxide 20 L 20 L Anion Gap 15 13 BUN 92 H 89 H Creatinine 6.22 H 5.91 H Est GFR ( Amer) 10 L 11 L Est GFR (Non-Af Amer) 9 L 9 L Glucose 117 H 111 H Calcium 9.3 8.9 12/16/17 12/16/17 12/16/17 00:33 00:33 06:19 Creatine Kinase 45 L 42 L CK-MB (CK-2) 1.48 Troponin I 0.014 12/16/17 12/16/17 06:19 13:25 Creatine Kinase CK-MB (CK-2) 1.34 1.57 Troponin I 0.020 0.019 Impressions: Head CT 12/15/17 17:57 IMPRESSION: MICROVASCULAR ISCHEMIA AND GENERALIZED ATROPHY. NO ACUTE IMAGING FINDINGS IN THE BRAIN EVIDENCE OF ACUTE STROKE: NO. Chest X-Ray 12/15/17 17:58 IMPRESSION: NO ACUTE RADIOGRAPHIC FINDING IN THE CHEST. Assessment & Plan - Diagnosis (1) Acute renal failure Qualifiers: Acute renal failure type: unspecified Qualified Code(s): N17.9 - Acute kidney failure, unspecified Is this a current diagnosis for this admission?: Yes Plan: Likely due to underlying urinary retention caused by prostate hypertrophy. Currently David is in place. Will resume tamsulosin and Proscar. Nephrology following. (2) Anemia Is this a current diagnosis for this admission?: Yes Plan: Likely due to chronic CKD. H&H is stable. Nephrology following. Monitor H&H transfuse if less than 7 or actively bleeding. (3) Hyperkalemia Is this a current diagnosis for this admission?: Yes Plan: Patient was started on hyperkalemia protocol in the morning, no acute EKG changes. Continue Kayexalate. BMP tomorrow (4) Urinary retention Is this a current diagnosis for this admission?: Yes Plan: Likely due to underlying prostatic hypertrophy. Restart tamsulosin and Proscar. Outpatient urology follow-up. Continue David catheter. (5) Urinary tract infection Is this a current diagnosis for this admission?: Yes Plan: Started on empiric antibiotics. Renal ultrasound showed a small left kidney, thinning of the renal cortex bilaterally mild dilation of the collecting system. Negative for any pyelo-or hydro-. Follow-up culture and sensitivity. (6) Diabetes Is this a current diagnosis for this admission?: No Plan: Patient takes glyburide at home. Will start on sliding scale insulin and adjust dosage as needed. Diabetic diet. (7) Encephalopathy Is this a current diagnosis for this admission?: Yes Plan: Metabolic encephalopathy likely due to urine retention and acute renal failure. Improving. Treat treat underlying cause. (8) Hypothyroidism Is this a current diagnosis for this admission?: No Plan: TSH 2.11. Restart levothyroxine.
--- NOTE | 2017-12-16 16:17 | RADIOLOGY REPORT (SQ) ---
EXAM DESCRIPTION: U/S RETROPERITON (RENAL/AORTA) COMPLETED DATE/TIME: 12/16/2017 3:51 pm REASON FOR STUDY: JOSE with urinary retintion COMPARISON: 10/29/2014 TECHNIQUE: Dynamic and static grayscale images acquired of the kidneys and bladder and recorded on P ACS. Additional selected color Doppler and spectral images recorded. LIMITATIONS: None. FINDINGS: RIGHT KIDNEY: The right kidney measures 10.4 cm in length. There is cortical thinning. N o hydronephrosis. Very mild prominence of the collecting system. LEFT KIDNEY: The left kidney measures 7.2 cm in length. There is cortical thinning. Again no karthik hydronephrosis with mild dilatation of the collecting system. Review of a CT from 2014 demonstrates prominent extrarenal pelvises bilaterally. BLADDER: No masses. OTHER FINDINGS: No other significant finding. IMPRESSION: Small left kidney. Thinning of the renal cortex bilaterally. Very mild dilatation of t he collecting systems. TECHNICAL DOCUMENTATION: JOB ID: [id number] [employer]- All Rights Reserved Reading location - IP/workstation name: [email or web address]
[2017-12-16] MEDS: NORMAL SALINE 1000 ML 1,000 ML IV PRN (17:13)
[2017-12-16 17:39] LABS: ANION GAP 10 (5-19); BLOOD UREA NITROGEN 81 mg/dL (7-20); CALCIUM 8.8 mg/dL (8.4-10.2); CARBON DIOXIDE 23 mmol/L (22-30); CHLORIDE 103 mmol/L (98-107); GLUCOSE 116 mg/dL (75-110); POTASSIUM 5.4 mmol/L (3.6-5.0); SODIUM 136.4 mmol/L (137-145)
[2017-12-16] MEDS ORDERED: CALCIUM GLUCONATE 1000 MG/10 ML INJ IV ONE (19:30)
[2017-12-16] MEDS ORDERED: ALBUTEROL SULFATE 0.083% NEB 2.5 MG/3 ML AMPUL NEB ONE (19:30)
[2017-12-16] MEDS ORDERED: SODIUM POLYSTYRENE SULFONATE 15 GM/60 ML PO ONE (19:30)
[2017-12-16] MEDS: CEFTRIAXONE SODIUM 1,000 MG in DEXTROSE 5%-WATER 50 ML IV SCH (21:46)
[2017-12-16] MEDS ORDERED: CEFTRIAXONE 1 GM/D5W RTU 1 GM/50 ML RTUPB IV SCH (22:00)
[2017-12-16 22:28] LABS: ANION GAP 10 (5-19); BLOOD UREA NITROGEN 75 mg/dL (7-20); CALCIUM 9.3 mg/dL (8.4-10.2); CARBON DIOXIDE 23 mmol/L (22-30); CHLORIDE 103 mmol/L (98-107); GLUCOSE 127 mg/dL (75-110); POTASSIUM 4.8 mmol/L (3.6-5.0); SODIUM 136.4 mmol/L (137-145)
[2017-12-17] MEDS: OXYCODONE HCL IR 5 MG TABLET PO PRN ×2 (03:29→21:37)
[2017-12-17] MEDS: HEPARIN SOD (PORCINE) 5,000 UNIT/ML 1 ML SYRINGE SUBCUT SCH ×3 (05:24→21:28)
[2017-12-17 06:25] LABS: ABSOLUTE EOSINOPHILS # (AUTO) 0.1 10^3/uL (0.0-0.6); ABSOLUTE LYMPHOCYTES (AUTO) 1.6 10^3/uL (0.5-4.7); ABSOLUTE MONOCYTES (AUTO) 0.3 10^3/uL (0.1-1.4); ABSOLUTE NEUT (AUTO) 3.3 10^3/uL (1.7-8.2); ABSOLUTE RETICS # 0.066 10^6/uL (0.028-0.122); BASOPHILS % (AUTO) 0.6 % (0-2); EOSINOPHILS % (AUTO) 1.1 % (0-6); HEMATOCRIT 24.3 % (37.9-51.0); HEMOGLOBIN 8.4 g/dL (13.5-17.0); LYMPHOCYTES % (AUTO) 30.4 % (13-45); MEAN CORPUSCULAR HEMOGLOBIN 29.9 pg (27.0-33.4); MEAN CORPUSCULAR HGB CONC 34.3 g/dL (32.0-36.0); MEAN CORPUSCULAR VOLUME 87 fl (80-97); MONOCYTES % (AUTO) 6.2 % (3-13); PLATELET COUNT 211 10^3/uL (150-450); RED BLOOD COUNT 2.79 10^6/uL (4.35-5.55); RED CELL DISTRIBUTION WIDTH 19.7 % (11.5-14.0); RETICULOCYTE COUNT (AUTO) 2.36 % (0.66-2.85); SEGMENTED NEUTROPHILS % (AUTO) 61.7 % (42-78); TOTAL CELLS COUNTED % (AUTO) 100 %; WHITE BLOOD COUNT 5.4 10^3/uL (4.0-10.5)
[2017-12-17 06:53] LABS: ALANINE AMINOTRANSFERASE 21 U/L (21-72); ALBUMIN 2.9 g/dL (3.5-5.0); ALKALINE PHOSPHATASE 71 U/L (38-126); ANION GAP 9 (5-19); ASPARTATE AMINO TRANSFERASE 10 U/L (17-59); BILIRUBIN,DIRECT 0.2 mg/dL (0.0-0.4); BILIRUBIN,TOTAL 0.3 mg/dL (0.2-1.3); BLOOD UREA NITROGEN 68 mg/dL (7-20); CALCIUM 8.8 mg/dL (8.4-10.2); CARBON DIOXIDE 21 mmol/L (22-30); CHLORIDE 108 mmol/L (98-107); GLUCOSE 100 mg/dL (75-110); IRON(TIBC) 44.7 ug/dL (49-181); POTASSIUM 4.6 mmol/L (3.6-5.0); SODIUM 137.7 mmol/L (137-145); TOTAL PROTEIN 5.9 g/dL (6.3-8.2)
[2017-12-17] MEDS: NORMAL SALINE 1000 ML 1,000 ML IV PRN (09:45)
[2017-12-17] MEDS: DOCUSATE SODIUM 100 MG CAPSULE PO SCH ×2 (09:45→18:58)
[2017-12-17] MEDS: FINASTERIDE 5 MG TABLET PO SCH (09:45)
[2017-12-17] MEDS: ASPIRIN 81 MG TABLET, CHEWABLE PO SCH (09:45)
[2017-12-17] MEDS: TAMSULOSIN HCL 0.4 MG CAP.SR.24H PO SCH (09:45)
[2017-12-17] MEDS: METOPROLOL SUCCINATE 50 MG TAB.SR.24H PO SCH (09:45)
[2017-12-17] MEDS: LEVOTHYROXINE SODIUM 0.05 MG TABLET PO SCH (09:45)
[2017-12-17] MEDS ORDERED: SODIUM BICARBONATE 650 MG TABLET PO SCH (10:00)
[2017-12-17] MEDS ORDERED: CEFTRIAXONE 1 GM/D5W RTU 1 GM/50 ML RTUPB IV SCH (10:00)
--- NOTE | 2017-12-17 10:26 | PDOC PROGRESS REPORT ---
Subjective Progress Note for:: 12/17/17 Subjective:: 87-year-old male past medical history of diabetes, osteoarthritis, hypertension , prostatic hypertrophy, stage III CKD. Patient presented to ED with 4 hours of confusion. In the emergency room he was found to have urinary retention, UTI , she is on chronic renal failure and hyperkalemia. CT head did not show any acute abnormalities. Patient was found to have a UTI and urinary retention. David catheter was placed and patient produced 2 L of urine. Mental status improved after David catheter placement. Patient was found to have a creatinine of 6.3 which improved to 5.9. His baseline is 2. Patient is seen as outpatient by log chipper operator for his CKD. 12/16/2017. On my encounter patient is sitting on the recliner talking with his friend who sitting on the bed. Patient is very pleasant, alert and oriented and cooperative with physical examination. He denies any fever, chills , nausea, vomiting, diarrhea, constipation or any urinary symptoms. 12/17/2017. No acute events overnight. On my encounter patient is resting comfortably in bed. He is alert and pleasant and cooperating with physical examination. Has been p.o. tolerant and having normal bowel and bladder movements. Denying any pain, fever, nausea, vomiting, diarrhea, chest pain, shortness of breath or any urinary symptoms. Reason For Visit: ARF HYPERKALEMIA UTI DEMENTIA Physical Exam Vital Signs: Temp Pulse Resp BP Pulse Ox 98.1 F 70 16 127/50 H 100 12/17/17 03:23 12/17/17 07:00 12/17/17 03:23 12/17/17 03:23 12/17/17 03:23 Intake & Output 12/16/17 12/17/17 12/18/17 06:59 06:59 06:59 Intake Total 6201 552 4099 Output Total 1225 1525 Balance -175 -531 1000 Weight 93.4 kg 93 kg General appearance: PRESENT: no acute distress, well-developed, well-nourished Head exam: PRESENT: atraumatic, normocephalic Eye exam: PRESENT: conjunctiva pink, EOMI, PERRLA. ABSENT: scleral icterus Ear exam: PRESENT: normal external ear exam Mouth exam: PRESENT: moist, tongue midline Neck exam: ABSENT: carotid bruit, JVD, lymphadenopathy, thyromegaly Respiratory exam: PRESENT: clear to auscultation rossana. ABSENT: rales, rhonchi, wheezes Cardiovascular exam: PRESENT: RRR. ABSENT: diastolic murmur, rubs, systolic murmur Pulses: PRESENT: normal dorsalis pedis pul Vascular exam: PRESENT: normal capillary refill GI/Abdominal exam: PRESENT: normal bowel sounds, soft. ABSENT: distended, guarding, mass, organolmegaly, rebound, tenderness Rectal exam: PRESENT: deferred Extremities exam: PRESENT: full ROM. ABSENT: calf tenderness, clubbing, pedal edema Neurological exam: PRESENT: alert, awake, oriented to person, oriented to place , oriented to time, oriented to situation, CN II-XII grossly intact. ABSENT: motor sensory deficit Psychiatric exam: PRESENT: appropriate affect, normal mood. ABSENT: homicidal ideation, suicidal ideation Skin exam: PRESENT: dry, intact, warm. ABSENT: cyanosis, rash Results Laboratory Results: 12/17/17 05:35 12/17/17 05:35 12/16/17 12/16/17 12/17/17 16:55 22:00 05:35 WBC 5.4 RBC 2.79 L Hgb 8.4 L Hct 24.3 L MCV 87 MCH 29.9 MCHC 34.3 RDW 19.7 H Plt Count 211 Seg Neutrophils % 61.7 Lymphocytes % 30.4 Monocytes % 6.2 Eosinophils % 1.1 Basophils % 0.6 Absolute Neutrophils 3.3 Absolute Lymphocytes 1.6 Absolute Monocytes 0.3 Absolute Eosinophils 0.1 Absolute Basophils 0.0 Retic Count (auto) 2.36 Absolute Retic 0.066 Sodium 136.4 L 136.4 L Potassium 5.4 H 4.8 Chloride 103 103 Carbon Dioxide 23 23 Anion Gap 10 10 BUN 81 H 75 H Creatinine 5.41 H 5.49 H Est GFR ( Amer) 12 L 12 L Est GFR (Non-Af Amer) 10 L 10 L Glucose 116 H 127 H Calcium 8.8 9.3 Magnesium Iron TIBC % Saturation Ferritin Total Bilirubin AST ALT Alkaline Phosphatase Total Protein Albumin Vitamin B12 Folate 12/17/17 05:35 WBC RBC Hgb Hct MCV MCH MCHC RDW Plt Count Seg Neutrophils % Lymphocytes % Monocytes % Eosinophils % Basophils % Absolute Neutrophils Absolute Lymphocytes Absolute Monocytes Absolute Eosinophils Absolute Basophils Retic Count (auto) Absolute Retic Sodium 137.7 Potassium 4.6 Chloride 108 H Carbon Dioxide 21 L Anion Gap 9 BUN 68 H Creatinine 4.72 H Est GFR ( Amer) 14 L Est GFR (Non-Af Amer) 12 L Glucose 100 Calcium 8.8 Magnesium 2.9 H Iron 44.7 L TIBC 224 L % Saturation 20 Ferritin 98.60 Total Bilirubin 0.3 AST 10 L ALT 21 Alkaline Phosphatase 71 Total Protein 5.9 L Albumin 2.9 L Vitamin B12 652.0 Folate 15.00 12/16/17 12/16/17 12/16/17 00:33 00:33 06:19 Creatine Kinase 45 L 42 L CK-MB (CK-2) 1.48 Troponin I 0.014 12/16/17 12/16/17 06:19 13:25 Creatine Kinase CK-MB (CK-2) 1.34 1.57 Troponin I 0.020 0.019 Impressions: Head CT 12/15/17 17:57 IMPRESSION: MICROVASCULAR ISCHEMIA AND GENERALIZED ATROPHY. NO ACUTE IMAGING FINDINGS IN THE BRAIN EVIDENCE OF ACUTE STROKE: NO. Chest X-Ray 12/15/17 17:58 IMPRESSION: NO ACUTE RADIOGRAPHIC FINDING IN THE CHEST. Renal Ultrasound 12/16/17 00:00 IMPRESSION: Small left kidney. Thinning of the renal cortex bilaterally. Very mild dilatation of the collecting systems. Assessment & Plan - Diagnosis (1) Acute renal failure Qualifiers: Acute renal failure type: unspecified Qualified Code(s): N17.9 - Acute kidney failure, unspecified Is this a current diagnosis for this admission?: Yes Plan: Likely due to underlying urinary retention caused by prostate hypertrophy. Creatinine improving but not back to baseline. Electrolytes within normal limits. Currently David is in place. Will resume tamsulosin and Proscar. Nephrology following. (2) Anemia Is this a current diagnosis for this admission?: Yes Plan: Likely due to chronic CKD and iron deficiency. Iron panel suggestive of iron deficiency anemia. Folic acid and vitamin B12 within normal limits. TSH within normal limits. Stool guaiac ordered. Start on ferrous sulfate. Nephrology following. Monitor H&H transfuse if less than 7 or actively bleeding. (3) Hyperkalemia Is this a current diagnosis for this admission?: Yes Plan: Resolved (4) Urinary retention Is this a current diagnosis for this admission?: Yes Plan: Likely due to underlying prostatic hypertrophy. Restart tamsulosin and Proscar. Outpatient urology follow-up. Continue David catheter. (5) Urinary tract infection Is this a current diagnosis for this admission?: Yes Plan: Likely gram-negative rods. Continue ceftriaxone. Cultures negative so far. Renal ultrasound showed a small left kidney, thinning of the renal cortex bilaterally mild dilation of the collecting system. Negative for any pyelo-or hydro-. Follow-up culture and sensitivity. (6) Diabetes Is this a current diagnosis for this admission?: No Plan: Controlled. Fasting blood glucose is 100. Patient takes glyburide at home. Continue sliding scale insulin. Diabetic diet. (7) Encephalopathy Is this a current diagnosis for this admission?: Yes Plan: Resolved. Metabolic encephalopathy likely due to urine retention and acute renal failure. Treat treat underlying cause. (8) Hypothyroidism Is this a current diagnosis for this admission?: No Plan: TSH 2.11. Restart levothyroxine.
--- NOTE | 2017-12-17 15:30 | PDOC PROGRESS REPORT ---
Subjective Progress Note for:: 12/17/17 Subjective:: Patient was seen today sitting up in his bed eating his breakfast at the time. He was A&Ox3. He denied chest pain, SOB, n/v/d/c. He also denies seeing blood in his stool or having dark tarry stools. No symptoms related to anemia. Reason For Visit: ARF HYPERKALEMIA UTI DEMENTIA Physical Exam Vital Signs: Temp Pulse Resp BP Pulse Ox 98.1 F 78 18 127/50 H 98 12/17/17 03:23 12/17/17 10:51 12/17/17 10:51 12/17/17 03:23 12/17/17 10:51 Intake & Output 12/16/17 12/17/17 12/18/17 06:59 06:59 06:59 Intake Total 3137 730 1522 Output Total 1225 1525 Balance -175 -531 1000 Weight 93.4 kg 93 kg General appearance: PRESENT: no acute distress, well-developed, well-nourished Mouth exam: PRESENT: moist, neck supple Neck exam: PRESENT: full ROM. ABSENT: JVD Respiratory exam: PRESENT: clear to auscultation rossana. ABSENT: rales, rhonchi, wheezes Cardiovascular exam: PRESENT: RRR, +S1, +S2 GI/Abdominal exam: PRESENT: soft. ABSENT: tenderness Extremities exam: ABSENT: pedal edema, tenderness, +1 edema, +2 edema Musculoskeletal exam: PRESENT: normal inspection. ABSENT: tenderness Neurological exam: PRESENT: alert, awake, oriented to person, oriented to place , oriented to time, oriented to situation Skin exam: PRESENT: dry, intact, warm. ABSENT: cyanosis Results Laboratory Results: 12/17/17 05:35 12/17/17 05:35 12/16/17 12/16/17 12/17/17 16:55 22:00 05:35 WBC 5.4 RBC 2.79 L Hgb 8.4 L Hct 24.3 L MCV 87 MCH 29.9 MCHC 34.3 RDW 19.7 H Plt Count 211 Seg Neutrophils % 61.7 Lymphocytes % 30.4 Monocytes % 6.2 Eosinophils % 1.1 Basophils % 0.6 Absolute Neutrophils 3.3 Absolute Lymphocytes 1.6 Absolute Monocytes 0.3 Absolute Eosinophils 0.1 Absolute Basophils 0.0 Retic Count (auto) 2.36 Absolute Retic 0.066 Sodium 136.4 L 136.4 L Potassium 5.4 H 4.8 Chloride 103 103 Carbon Dioxide 23 23 Anion Gap 10 10 BUN 81 H 75 H Creatinine 5.41 H 5.49 H Est GFR ( Amer) 12 L 12 L Est GFR (Non-Af Amer) 10 L 10 L Glucose 116 H 127 H Calcium 8.8 9.3 Magnesium Iron TIBC % Saturation Ferritin Total Bilirubin AST ALT Alkaline Phosphatase Total Protein Albumin Vitamin B12 Folate 12/17/17 05:35 WBC RBC Hgb Hct MCV MCH MCHC RDW Plt Count Seg Neutrophils % Lymphocytes % Monocytes % Eosinophils % Basophils % Absolute Neutrophils Absolute Lymphocytes Absolute Monocytes Absolute Eosinophils Absolute Basophils Retic Count (auto) Absolute Retic Sodium 137.7 Potassium 4.6 Chloride 108 H Carbon Dioxide 21 L Anion Gap 9 BUN 68 H Creatinine 4.72 H Est GFR ( Amer) 14 L Est GFR (Non-Af Amer) 12 L Glucose 100 Calcium 8.8 Magnesium 2.9 H Iron 44.7 L TIBC 224 L % Saturation 20 Ferritin 98.60 Total Bilirubin 0.3 AST 10 L ALT 21 Alkaline Phosphatase 71 Total Protein 5.9 L Albumin 2.9 L Vitamin B12 652.0 Folate 15.00 12/16/17 12/16/17 12/16/17 00:33 00:33 06:19 Creatine Kinase 45 L 42 L CK-MB (CK-2) 1.48 Troponin I 0.014 12/16/17 12/16/17 06:19 13:25 Creatine Kinase CK-MB (CK-2) 1.34 1.57 Troponin I 0.020 0.019 Impressions: Head CT 12/15/17 17:57 IMPRESSION: MICROVASCULAR ISCHEMIA AND GENERALIZED ATROPHY. NO ACUTE IMAGING FINDINGS IN THE BRAIN EVIDENCE OF ACUTE STROKE: NO. Chest X-Ray 12/15/17 17:58 IMPRESSION: NO ACUTE RADIOGRAPHIC FINDING IN THE CHEST. Renal Ultrasound 12/16/17 00:00 IMPRESSION: Small left kidney. Thinning of the renal cortex bilaterally. Very mild dilatation of the collecting systems. Assessment & Plan - Diagnosis (1) Acute renal failure Qualifiers: Acute renal failure type: unspecified Qualified Code(s): N17.9 - Acute kidney failure, unspecified Is this a current diagnosis for this admission?: Yes Plan: improving, continue with fluids and the ayala catheter. Will continue to monitor. Will look to replace aluminum hydroxide with calcium carbonate to prevent aluminum toxicity with current kidney function (2) Anemia Is this a current diagnosis for this admission?: Yes Plan: agree with hospitalist services interpretation of current anemia. Awaiting results of occult blood stool test and then will look to start procrit. Patient agrees to start procrit. He was made aware of the risks and benefits of procrit , including the black box warnings. (3) Urinary retention Is this a current diagnosis for this admission?: Yes Plan: continue with the ayala (4) Urinary tract infection Is this a current diagnosis for this admission?: Yes Plan: awaiting final results of urine culture (5) CKD (chronic kidney disease), stage IV Plan: baseline is 2.0 (6) HTN (hypertension) Plan: currently controlled (7) Diabetes Is this a current diagnosis for this admission?: No
[2017-12-17] MEDS ORDERED: CALCIUM CARBONATE 500 MG TABLET PO PRN (15:36)
[2017-12-17] MEDS: CEFTRIAXONE SODIUM 1,000 MG in DEXTROSE 5%-WATER 50 ML IV SCH (21:28)
[2017-12-18] MEDS: NORMAL SALINE 1000 ML 1,000 ML IV PRN (00:06)
[2017-12-18] MEDS: HEPARIN SOD (PORCINE) 5,000 UNIT/ML 1 ML SYRINGE SUBCUT SCH ×3 (05:04→21:12)
[2017-12-18 06:56] LABS: ABSOLUTE EOSINOPHILS # (AUTO) 0.1 10^3/uL (0.0-0.6); ABSOLUTE LYMPHOCYTES (AUTO) 1.6 10^3/uL (0.5-4.7); ABSOLUTE MONOCYTES (AUTO) 0.3 10^3/uL (0.1-1.4); ABSOLUTE NEUT (AUTO) 2.9 10^3/uL (1.7-8.2); BASOPHILS % (AUTO) 0.6 % (0-2); EOSINOPHILS % (AUTO) 1.4 % (0-6); HEMATOCRIT 24.9 % (37.9-51.0); HEMOGLOBIN 8.3 g/dL (13.5-17.0); LYMPHOCYTES % (AUTO) 32.9 % (13-45); MEAN CORPUSCULAR HEMOGLOBIN 29.1 pg (27.0-33.4); MEAN CORPUSCULAR HGB CONC 33.5 g/dL (32.0-36.0); MEAN CORPUSCULAR VOLUME 87 fl (80-97); MONOCYTES % (AUTO) 5.7 % (3-13); PLATELET COUNT 207 10^3/uL (150-450); RED BLOOD COUNT 2.87 10^6/uL (4.35-5.55); RED CELL DISTRIBUTION WIDTH 18.9 % (11.5-14.0); SEGMENTED NEUTROPHILS % (AUTO) 59.4 % (42-78); TOTAL CELLS COUNTED % (AUTO) 100 %; WHITE BLOOD COUNT 4.9 10^3/uL (4.0-10.5)
[2017-12-18 07:12] LABS: ALANINE AMINOTRANSFERASE 19 U/L (21-72); ALBUMIN 2.7 g/dL (3.5-5.0); ALKALINE PHOSPHATASE 60 U/L (38-126); ANION GAP 9 (5-19); ASPARTATE AMINO TRANSFERASE 8 U/L (17-59); BILIRUBIN,DIRECT 0.2 mg/dL (0.0-0.4); BILIRUBIN,TOTAL 0.3 mg/dL (0.2-1.3); BLOOD UREA NITROGEN 51 mg/dL (7-20); CALCIUM 8.6 mg/dL (8.4-10.2); CARBON DIOXIDE 22 mmol/L (22-30); CHLORIDE 108 mmol/L (98-107); GLUCOSE 108 mg/dL (75-110); POTASSIUM 4.5 mmol/L (3.6-5.0); SODIUM 138.9 mmol/L (137-145); TOTAL PROTEIN 5.3 g/dL (6.3-8.2)
[2017-12-18] MEDS: ASPIRIN 81 MG TABLET, CHEWABLE PO SCH (09:02)
[2017-12-18] MEDS: METOPROLOL SUCCINATE 50 MG TAB.SR.24H PO SCH (09:02)
[2017-12-18] MEDS: FINASTERIDE 5 MG TABLET PO SCH (09:02)
[2017-12-18] MEDS: DOCUSATE SODIUM 100 MG CAPSULE PO SCH ×2 (09:02→18:32)
[2017-12-18] MEDS: TAMSULOSIN HCL 0.4 MG CAP.SR.24H PO SCH (09:02)
[2017-12-18] MEDS: MAGNESIUM OXIDE 400 MG TABLET PO SCH ×2 (09:03→14:27)
[2017-12-18] MEDS: LEVOTHYROXINE SODIUM 0.05 MG TABLET PO SCH (09:08)
[2017-12-18] MEDS ORDERED: FERROUS SULFATE 325 MG TABLET PO SCH (10:00)
--- NOTE | 2017-12-18 11:41 | PDOC PROGRESS REPORT ---
Subjective Progress Note for:: 12/18/17 Subjective:: 87-year-old male past medical history of diabetes, osteoarthritis, hypertension , prostatic hypertrophy, stage III CKD. Patient presented to ED with 4 hours of confusion. In the emergency room he was found to have urinary retention, UTI , she is on chronic renal failure and hyperkalemia. CT head did not show any acute abnormalities. Patient was found to have a UTI and urinary retention. David catheter was placed and patient produced 2 L of urine. Mental status improved after David catheter placement. Patient was found to have a creatinine of 6.3 which improved to 5.9. His baseline is 2. 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 12/16/2017. On my encounter patient is sitting on the recliner talking with his friend who sitting on the bed. Patient is very pleasant, alert and oriented and cooperative with physical examination. He denies any fever, chills , nausea, vomiting, diarrhea, constipation or any urinary symptoms. 12/17/2017. No acute events overnight. On my encounter patient is resting comfortably in bed. He is alert and pleasant and cooperating with physical examination. Has been p.o. tolerant and having normal bowel and bladder movements. Denying any pain, fever, nausea, vomiting, diarrhea, chest pain, shortness of breath or any urinary symptoms. In 2017. No acute events overnight. On my encounter patient is comfortably sleeping and easily arousable. Patient said that he could not get a good night sleep overnight due to the interruptions by nursing staff. He is alert oriented and very pleasant and cooperating with physical examination. Patient was made aware of his positive occult test and he said he does not want any endoscopy or colonoscopy at his age. He denies any melena, hematochezia. He denies any fever, shortness of breath, chest pain, nausea, vomiting, diarrhea, constipation or any urinary symptoms. Reason For Visit: ARF HYPERKALEMIA UTI DEMENTIA Physical Exam Vital Signs: Temp Pulse Resp BP Pulse Ox 97.4 F 69 16 125/59 L 100 12/18/17 07:25 12/18/17 09:54 12/18/17 09:54 12/18/17 07:25 12/18/17 09:54 Intake & Output 12/17/17 12/18/17 12/19/17 06:59 06:59 06:59 Intake Total 994 3062 Output Total 1525 1700 Balance -531 1362 Weight 93 kg 91.9 kg General appearance: PRESENT: no acute distress, well-developed, well-nourished Head exam: PRESENT: atraumatic, normocephalic Eye exam: PRESENT: conjunctiva pink, EOMI, PERRLA. ABSENT: scleral icterus Ear exam: PRESENT: normal external ear exam Mouth exam: PRESENT: moist, tongue midline Neck exam: ABSENT: carotid bruit, JVD, lymphadenopathy, thyromegaly Respiratory exam: PRESENT: clear to auscultation rossana. ABSENT: rales, rhonchi, wheezes Cardiovascular exam: PRESENT: RRR. ABSENT: diastolic murmur, rubs, systolic murmur Pulses: PRESENT: normal dorsalis pedis pul Vascular exam: PRESENT: normal capillary refill GI/Abdominal exam: PRESENT: normal bowel sounds, soft. ABSENT: distended, guarding, mass, organolmegaly, rebound, tenderness Rectal exam: PRESENT: deferred Extremities exam: PRESENT: full ROM. ABSENT: calf tenderness, clubbing, pedal edema Neurological exam: PRESENT: alert, awake, oriented to person, oriented to place , oriented to time, oriented to situation, CN II-XII grossly intact. ABSENT: motor sensory deficit Psychiatric exam: PRESENT: appropriate affect, normal mood. ABSENT: homicidal ideation, suicidal ideation Skin exam: PRESENT: dry, intact, warm. ABSENT: cyanosis, rash Results Laboratory Results: 12/18/17 06:28 12/18/17 06:28 12/17/17 12/18/17 12/18/17 14:50 06:28 06:28 WBC 4.9 RBC 2.87 L Hgb 8.3 L Hct 24.9 L MCV 87 MCH 29.1 MCHC 33.5 RDW 18.9 H Plt Count 207 Seg Neutrophils % 59.4 Lymphocytes % 32.9 Monocytes % 5.7 Eosinophils % 1.4 Basophils % 0.6 Absolute Neutrophils 2.9 Absolute Lymphocytes 1.6 Absolute Monocytes 0.3 Absolute Eosinophils 0.1 Absolute Basophils 0.0 Sodium 138.9 Potassium 4.5 Chloride 108 H Carbon Dioxide 22 Anion Gap 9 BUN 51 H Creatinine 3.82 H Est GFR ( Amer) 18 L Est GFR (Non-Af Amer) 15 L Glucose 108 Calcium 8.6 Magnesium 2.5 H Total Bilirubin 0.3 AST 8 L ALT 19 L Alkaline Phosphatase 60 Total Protein 5.3 L Albumin 2.7 L Stool Occult Blood POSITIVE 12/16/17 12/16/17 12/16/17 00:33 00:33 06:19 Creatine Kinase 45 L 42 L CK-MB (CK-2) 1.48 Troponin I 0.014 12/16/17 12/16/17 06:19 13:25 Creatine Kinase CK-MB (CK-2) 1.34 1.57 Troponin I 0.020 0.019 Impressions: Head CT 12/15/17 17:57 IMPRESSION: MICROVASCULAR ISCHEMIA AND GENERALIZED ATROPHY. NO ACUTE IMAGING FINDINGS IN THE BRAIN EVIDENCE OF ACUTE STROKE: NO. Chest X-Ray 12/15/17 17:58 IMPRESSION: NO ACUTE RADIOGRAPHIC FINDING IN THE CHEST. Renal Ultrasound 12/16/17 00:00 IMPRESSION: Small left kidney. Thinning of the renal cortex bilaterally. Very mild dilatation of the collecting systems. Assessment & Plan - Diagnosis (1) Acute on chronic renal failure Is this a current diagnosis for this admission?: Yes Plan: Improving. Likely due to underlying urinary retention caused by prostate hypertrophy. Creatinine improving but not back to baseline. Electrolytes within normal limits. Currently David is in place. Restarted tamsulosin and Proscar. Nephrology following. (2) Anemia Is this a current diagnosis for this admission?: Yes Plan: Likely due to chronic CKD and iron deficiency combined. Iron panel suggestive of iron deficiency anemia. Folic acid and vitamin B12 within normal limits. TSH within normal limits. Guaiac positive. Patient was made aware of possible GI bleeding. He does not want any endoscopy or colonoscopy at this age. We will continue ferrous sulfate and also nephrology is considering Procrit. Nephrology following. Monitor H&H transfuse if less than 7 or actively bleeding. (3) Hyperkalemia Is this a current diagnosis for this admission?: Yes Plan: Resolved (4) Urinary retention Is this a current diagnosis for this admission?: Yes Plan: Likely due to underlying prostatic hypertrophy. Restart tamsulosin and Proscar. Outpatient urology follow-up. Continue David catheter. (5) Urinary tract infection Is this a current diagnosis for this admission?: Yes Plan: Urine culture positive for Pseudomonas pansensitive. Will switch to levofloxacin. ID consulted for advice on the length of therapy. Renal ultrasound showed a small left kidney, thinning of the renal cortex bilaterally mild dilation of the collecting system. Negative for any pyelo-or hydro-. (6) Diabetes Is this a current diagnosis for this admission?: No Plan: Controlled. Fasting blood glucose is low 100s. Patient takes glyburide at home. Continue sliding scale insulin. Diabetic diet. (7) Encephalopathy Is this a current diagnosis for this admission?: Yes Plan: Resolved. Metabolic encephalopathy likely due to urine retention and acute renal failure. Treat treat underlying cause. (8) Hypothyroidism Is this a current diagnosis for this admission?: No Plan: TSH 2.11. Restart levothyroxine.
--- NOTE | 2017-12-18 13:40 | PDOC PROGRESS REPORT ---
Subjective Progress Note for:: 12/18/17 Subjective:: Patient was seen today laying in his bed. occult blood stool sample was positive but he refuses further evaluation. At the time he denied any signs or symptoms of anemia. He denies chest pain, SOB, n/v/d/c. Reason For Visit: ARF HYPERKALEMIA UTI DEMENTIA Physical Exam Vital Signs: Temp Pulse Resp BP Pulse Ox 97.4 F 69 16 125/59 L 100 12/18/17 07:25 12/18/17 09:54 12/18/17 09:54 12/18/17 07:25 12/18/17 09:54 Intake & Output 12/17/17 12/18/17 12/19/17 06:59 06:59 06:59 Intake Total 994 3062 Output Total 1525 1700 Balance -531 1362 Weight 93 kg 91.9 kg General appearance: PRESENT: no acute distress, well-developed, well-nourished Mouth exam: PRESENT: moist. ABSENT: neck supple Neck exam: PRESENT: full ROM. ABSENT: JVD Respiratory exam: PRESENT: clear to auscultation rossana. ABSENT: accessory muscle use, crackles, rales, rhonchi, wheezes Cardiovascular exam: PRESENT: RRR, +S1, +S2 GI/Abdominal exam: PRESENT: soft. ABSENT: tenderness Extremities exam: ABSENT: tenderness, +1 edema, +2 edema Musculoskeletal exam: PRESENT: normal inspection. ABSENT: tenderness Neurological exam: PRESENT: alert, awake, oriented to person, oriented to place , oriented to time, oriented to situation Skin exam: PRESENT: dry, intact, warm. ABSENT: cyanosis Results Laboratory Results: 12/18/17 06:28 12/18/17 06:28 12/17/17 12/18/17 12/18/17 14:50 06:28 06:28 WBC 4.9 RBC 2.87 L Hgb 8.3 L Hct 24.9 L MCV 87 MCH 29.1 MCHC 33.5 RDW 18.9 H Plt Count 207 Seg Neutrophils % 59.4 Lymphocytes % 32.9 Monocytes % 5.7 Eosinophils % 1.4 Basophils % 0.6 Absolute Neutrophils 2.9 Absolute Lymphocytes 1.6 Absolute Monocytes 0.3 Absolute Eosinophils 0.1 Absolute Basophils 0.0 Sodium 138.9 Potassium 4.5 Chloride 108 H Carbon Dioxide 22 Anion Gap 9 BUN 51 H Creatinine 3.82 H Est GFR ( Amer) 18 L Est GFR (Non-Af Amer) 15 L Glucose 108 Calcium 8.6 Magnesium 2.5 H Total Bilirubin 0.3 AST 8 L ALT 19 L Alkaline Phosphatase 60 Total Protein 5.3 L Albumin 2.7 L Stool Occult Blood POSITIVE 12/16/17 12/16/17 12/16/17 00:33 00:33 06:19 Creatine Kinase 45 L 42 L CK-MB (CK-2) 1.48 Troponin I 0.014 12/16/17 12/16/17 06:19 13:25 Creatine Kinase CK-MB (CK-2) 1.34 1.57 Troponin I 0.020 0.019 Impressions: Head CT 12/15/17 17:57 IMPRESSION: MICROVASCULAR ISCHEMIA AND GENERALIZED ATROPHY. NO ACUTE IMAGING FINDINGS IN THE BRAIN EVIDENCE OF ACUTE STROKE: NO. Chest X-Ray 12/15/17 17:58 IMPRESSION: NO ACUTE RADIOGRAPHIC FINDING IN THE CHEST. Renal Ultrasound 12/16/17 00:00 IMPRESSION: Small left kidney. Thinning of the renal cortex bilaterally. Very mild dilatation of the collecting systems. Assessment & Plan - Diagnosis (1) Acute renal failure Qualifiers: Acute renal failure type: unspecified Qualified Code(s): N17.9 - Acute kidney failure, unspecified Is this a current diagnosis for this admission?: Yes Plan: currently improving, at this current time he is stable. If he were to be discharged I recommend keeping the ayala catheter in until he can follow up with a urologist. If discharged, recommend follow up with Dr. Ramos in 7 days after discharge (2) Anemia Is this a current diagnosis for this admission?: Yes Plan: Stabilizing, procrit shot is scheduled for today, will need to follow up with it in 1 weeks pending how his hemoglobin reacts. Will also look to start him protonix to prevent any further formation of stress ulcers. (3) Urinary retention Is this a current diagnosis for this admission?: Yes Plan: continue with the ayala (4) Urinary tract infection Is this a current diagnosis for this admission?: Yes Plan: on levofloxacin, needs to be dosed to 250mg qd with patients underlining kidney disease. (5) CKD (chronic kidney disease), stage IV Plan: baseline is 2.0 (6) HTN (hypertension) Plan: controlled (7) Diabetes Is this a current diagnosis for this admission?: No
[2017-12-18] MEDS: PANTOPRAZOLE SODIUM 40 MG VIAL IV SCH (14:27)
[2017-12-18] MEDS ORDERED: EPOETIN ALFA INJ 20000 UNIT/1 ML VIAL (RENAL) SUBCUT SCH (15:00)
[2017-12-18] MEDS ORDERED: CIPROFLOXACIN HCL 500 MG TABLET PO SCH ×2 (16:00→22:00)
--- NOTE | 2017-12-18 18:10 | Progress Note ---
Provider Note Provider Note: ID consult note Asked to review patient's chart and discussed case over the phone briefly with Dr Horner. Pt not seen or examined. Pt is an 87 year old man with PMH including DM, OA, HTN, CKD, prostatic hypertrophy, and permanent pacemaker placement. He was admitted on 12/16/17 with acute confusion limiting history. He was found to have JOSE on CKD and urinary retention requiring urinary catheter placement. His initial ROS was unobtainable d/t altered mental status. He had no fever. He has had no leukocytosis. He did not have any localizing findings on his initial exam. He had urinalysis, BCx, and UCx sent. Empirically pt was given a dose of Levaquin in the ED, then continued on Rocephin as an inpatient, for suspected UTI. He has had improvement in confusion and in his creatinine. BCx remained without growth. UCx grew >100k cfu Pseudomonas aeruginosa. Impression/Recommendations Urinary retention leading to encephalopathy and JOSE on CKD Possible complicated UTI due to Pseudomonas aeruginosa UTI is a clinical diagnosis. It cannot be established based on pyuria on a U/A ( although absence of pyuria has good negative predictive value). It cannot be established based on culture growth. The question is whether AMS is due to obstructive uropathy alone or obstructive uropathy plus UTI. Unfortunately, history was limited by AMS on presentation and is currently limited in setting of David catheter, which limits assessment of typical irritative urinary symptoms. If the patient had rapid improvement in mentation following David placement, this would support the notion that obstructive uropathy was the underlying process, that the patient has asymptomatic bacteriuria, and that antibiotic therapy should be stopped. However, if this information is not known - if it is not possible to distinguish when mental status improved in relationship to David placement vs receiving Levaquin in the ED - then continuing an antipseudomonal antibiotic for 5 days for treatment of complicated UTI is reasonable. The patient can be treated with either Levaquin or ciprofloxacin for 5 days, dose adjusted for the patient's CKD with assistance of Pharmacy. Ciprofloxacin would be a narrower spectrum agent and better targeted for the Pseudomonas and would be preferred over Levaquin in this respect. Multivalent cations (iron, calcium, magnesium) would need to be given at a different time than the fluoroquinolone to avoid chelating the fluoroquinolone. Juan Carlos Smith MD [facility] pager [phone]
[2017-12-18] MEDS: OXYCODONE HCL IR 5 MG TABLET PO PRN (21:12)
[2017-12-19] MEDS: LEVOTHYROXINE SODIUM 0.05 MG TABLET PO SCH (05:37)
[2017-12-19] MEDS: HEPARIN SOD (PORCINE) 5,000 UNIT/ML 1 ML SYRINGE SUBCUT SCH (05:37)
[2017-12-19 06:23] LABS: ABSOLUTE EOSINOPHILS # (AUTO) 0.1 10^3/uL (0.0-0.6); ABSOLUTE LYMPHOCYTES (AUTO) 1.3 10^3/uL (0.5-4.7); ABSOLUTE MONOCYTES (AUTO) 0.3 10^3/uL (0.1-1.4); BASOPHILS % (AUTO) 0.4 % (0-2); EOSINOPHILS % (AUTO) 0.9 % (0-6); HEMATOCRIT 24.2 % (37.9-51.0); HEMOGLOBIN 8.3 g/dL (13.5-17.0); LYMPHOCYTES % (AUTO) 19.3 % (13-45); MEAN CORPUSCULAR HEMOGLOBIN 29.8 pg (27.0-33.4); MEAN CORPUSCULAR HGB CONC 34.1 g/dL (32.0-36.0); MEAN CORPUSCULAR VOLUME 87 fl (80-97); MONOCYTES % (AUTO) 4.4 % (3-13); PLATELET COUNT 195 10^3/uL (150-450); RED BLOOD COUNT 2.77 10^6/uL (4.35-5.55); RED CELL DISTRIBUTION WIDTH 18.8 % (11.5-14.0); TOTAL CELLS COUNTED % (AUTO) 100 %; WHITE BLOOD COUNT 6.7 10^3/uL (4.0-10.5)
[2017-12-19 06:28] LABS: ALANINE AMINOTRANSFERASE 15 U/L (21-72); ALBUMIN 2.6 g/dL (3.5-5.0); ALKALINE PHOSPHATASE 58 U/L (38-126); ANION GAP 10 (5-19); ASPARTATE AMINO TRANSFERASE 10 U/L (17-59); BILIRUBIN,DIRECT 0.1 mg/dL (0.0-0.4); BILIRUBIN,TOTAL 0.3 mg/dL (0.2-1.3); BLOOD UREA NITROGEN 41 mg/dL (7-20); CALCIUM 8.8 mg/dL (8.4-10.2); CARBON DIOXIDE 19 mmol/L (22-30); CHLORIDE 108 mmol/L (98-107); GLUCOSE 88 mg/dL (75-110); POTASSIUM 4.1 mmol/L (3.6-5.0); SODIUM 136.7 mmol/L (137-145); TOTAL PROTEIN 5.4 g/dL (6.3-8.2)
[2017-12-19] MEDS ORDERED: LEVOFLOXACIN 500 MG TABLET PO SCH (10:00)
[2017-12-19] MEDS: DOCUSATE SODIUM 100 MG CAPSULE PO SCH (11:55)
[2017-12-19] MEDS: OXYCODONE HCL IR 5 MG TABLET PO PRN (11:55)
[2017-12-19] MEDS: TAMSULOSIN HCL 0.4 MG CAP.SR.24H PO SCH (11:56)
[2017-12-19] MEDS: METOPROLOL SUCCINATE 50 MG TAB.SR.24H PO SCH (11:56)
[2017-12-19] MEDS: FINASTERIDE 5 MG TABLET PO SCH (11:56)
[2017-12-19] MEDS: PANTOPRAZOLE SODIUM 40 MG VIAL IV SCH (11:57)
[2017-12-19] MEDS: ASPIRIN 81 MG TABLET, CHEWABLE PO SCH (11:57)
[2017-12-19 13:04] VITALS: BP 118/49
--- NOTE | 2017-12-25 11:03 | PDOC DISCHARGE SUMMARY ---
General - Admit/Disc Date/PCP Admission Date/Primary Care Provider: 12/15/17 22:13 ANKIT VALVERDE PA-C Discharge Date: 12/19/17 - Discharge Diagnosis (1) Acute on chronic renal failure Is this a current diagnosis for this admission?: Yes (2) Anemia Is this a current diagnosis for this admission?: Yes (3) Hyperkalemia Is this a current diagnosis for this admission?: Yes (4) Urinary retention Is this a current diagnosis for this admission?: Yes (5) Urinary tract infection Is this a current diagnosis for this admission?: Yes (6) Diabetes Is this a current diagnosis for this admission?: No (7) Encephalopathy Is this a current diagnosis for this admission?: Yes (8) Hypothyroidism Is this a current diagnosis for this admission?: No - Additional Information Resuscitation Status: Full Code Discharge Diet: As Tolerated Discharge Activity: Activity As Tolerated, Balance Activity w/Rest Prescriptions: Ciprofloxacin HCl [Cipro 500 mg Tablet] 500 mg PO DAILY@1500 3 Days #3 tablet Home Medications: Aspirin [Aspirin 81 mg Chewable Tablet] 81 mg PO QHS 12/16/17 Fesoterodine Fumarate [Toviaz] 8 mg PO QAM 12/16/17 Finasteride [Proscar 5 mg Tablet] 5 mg PO QHS 12/16/17 Furosemide [Lasix 20 mg Tablet] 20 mg PO MOWEFR@1000 12/16/17 Glipizide [Glipizide ER] 2.5 mg PO Q2D 12/16/17 Levothyroxine Sodium [Synthroid] 50 mcg PO Q6AM 12/16/17 Lisinopril [Prinivil 5 mg Tablet] 5 mg PO QPM 12/16/17 Magnesium Oxide [Mag-Ox 400 mg Tablet] 400 mg PO TID 12/16/17 Metoprolol Succinate [Toprol Xl 50 mg Tab.sr] 50 mg PO QPM 12/16/17 Multivitamin [Multiple Vitamins] 1 each PO QAM 12/16/17 Polyethylene Glycol 3350 [Miralax Powder 17 gm/Packet] 1 packet PO HSP PRN 12/16 Tamsulosin HCl [Flomax 0.4 mg Cap.sr] 0.4 mg PO QPM 12/16/17 Ciprofloxacin HCl [Cipro 500 mg Tablet] 500 mg PO DAILY@1500 3 Days #3 tablet Ciprofloxacin HCl [Cipro 250 mg Tablet] 250 mg PO BID #14 tablet 12/23/17 History of Present Illness History of Present Illness: ANNA WILLARD is a 87 year old male male past medical history of diabetes, osteoarthritis, hypertension, prostatic hypertrophy, stage III CKD. Patient presented to ED with 4 hours of confusion. In the emergency room he was found to have urinary retention, UTI, she is on chronic renal failure and hyperkalemia. CT head did not show any acute abnormalities. Patient was found to have a UTI and urinary retention. David catheter was placed and patient produced 2 L of urine. Mental status improved after David catheter placement. Patient was found to have a creatinine of 6.3 which improved to 5.9. His baseline is 2. Patient is seen as outpatient by network technical analyst for his CKD. Hospital Course Hospital Course: (1) Acute on chronic renal failure Improved. Likely due to underlying urinary retention caused by prostate hypertrophy. Creatinine improving but not back to baseline. Electrolytes within normal limits. Currently David is in place. Restarted tamsulosin and Proscar. Nephrology following. (2) Anemia Likely due to chronic CKD and iron deficiency combined. Iron panel suggestive of iron deficiency anemia. Folic acid and vitamin B12 within normal limits. TSH within normal limits. Guaiac positive. Patient was made aware of possible GI bleeding. He does not want any endoscopy or colonoscopy at this age. We will continue ferrous sulfate and also nephrology is considering Procrit. (3) Hyperkalemia Resolved (4) Urinary retention Likely due to underlying prostatic hypertrophy. Restarted tamsulosin and Proscar. Outpatient urology follow-up. Continued David catheter. (5) Urinary tract infection Urine culture positive for Pseudomonas pansensitive. Will switch to levofloxacin. ID consulted for advice on the length of therapy. Renal ultrasound showed a small left kidney, thinning of the renal cortex bilaterally mild dilation of the collecting system. Negative for any pyelo-or hydro-. (6) Diabetes Controlled. Fasting blood glucose is low 100s. Patient takes glyburide at home. Continue sliding scale insulin. Diabetic diet. (7) Encephalopathy Resolved. Metabolic encephalopathy likely due to urine retention and acute renal failure. Treat treat underlying cause. (8) Hypothyroidism TSH 2.11. Restarted levothyroxine. Physical Exam Vital Signs: Temp Pulse Resp BP Pulse Ox 98.1 F 68 24 H 109/52 L 100 12/19/17 11:36 12/19/17 11:36 12/19/17 11:36 12/19/17 11:36 12/19/17 11:36 General appearance: PRESENT: no acute distress, well-developed, well-nourished Head exam: PRESENT: atraumatic, normocephalic Eye exam: PRESENT: conjunctiva pink, EOMI, PERRLA. ABSENT: scleral icterus Ear exam: PRESENT: normal external ear exam Mouth exam: PRESENT: moist, tongue midline Neck exam: ABSENT: carotid bruit, JVD, lymphadenopathy, thyromegaly Respiratory exam: PRESENT: clear to auscultation rossana. ABSENT: rales, rhonchi, wheezes Cardiovascular exam: PRESENT: RRR. ABSENT: diastolic murmur, rubs, systolic murmur Pulses: PRESENT: normal dorsalis pedis pul Vascular exam: PRESENT: normal capillary refill GI/Abdominal exam: PRESENT: normal bowel sounds, soft. ABSENT: distended, guarding, mass, organolmegaly, rebound, tenderness Rectal exam: PRESENT: deferred Extremities exam: PRESENT: full ROM. ABSENT: calf tenderness, clubbing, pedal edema Neurological exam: PRESENT: alert, awake, oriented to person, oriented to place , oriented to time, oriented to situation, CN II-XII grossly intact. ABSENT: motor sensory deficit Psychiatric exam: PRESENT: appropriate affect, normal mood. ABSENT: homicidal ideation, suicidal ideation Skin exam: PRESENT: dry, intact, warm. ABSENT: cyanosis, rash Results Laboratory Results: 12/19/17 05:34 12/19/17 05:34 12/16/17 12/16/17 12/16/17 00:33 00:33 06:19 Creatine Kinase 45 L 42 L CK-MB (CK-2) 1.48 Troponin I 0.014 12/16/17 12/16/17 06:19 13:25 Creatine Kinase CK-MB (CK-2) 1.34 1.57 Troponin I 0.020 0.019 Impressions: Head CT 12/15/17 17:57 IMPRESSION: MICROVASCULAR ISCHEMIA AND GENERALIZED ATROPHY. NO ACUTE IMAGING FINDINGS IN THE BRAIN EVIDENCE OF ACUTE STROKE: NO. Chest X-Ray 12/15/17 17:58 IMPRESSION: NO ACUTE RADIOGRAPHIC FINDING IN THE CHEST. Renal Ultrasound 12/16/17 00:00 IMPRESSION: Small left kidney. Thinning of the renal cortex bilaterally. Very mild dilatation of the collecting systems. Qualifiers - * PATIENT BEING DISCHARGED WITH ANY OF THE FOLLOWING DIAGNOSIS: No
== END 2017-12-19 13:21 | disposition home health service (06) | DRG 682 ==
LOC: ER 17:13 → EH 22:13 → 3S 23:40
PROVIDERS: ADMIT Internal Medicine; ATTEND Internal Medicine
DX: N17.9 Acute kidney failure, unspecified (principal); G93.41 Metabolic encephalopathy; N39.0 Urinary tract infection, site not specified; N40.1 Benign prostatic hyperplasia with lower urinary tract symptoms; N18.4 Chronic kidney disease, stage 4 (severe); I12.9 Hypertensive chronic kidney disease with stage 1 through stage 4 chronic kidney disease, or unspecified chronic kidney disease; E11.22 Type 2 diabetes mellitus with diabetic chronic kidney disease; B96.5 Pseudomonas (aeruginosa) (mallei) (pseudomallei) as the cause of diseases classified elsewhere; M19.90 Unspecified osteoarthritis, unspecified site; E87.5 Hyperkalemia; E86.0 Dehydration; R33.8 Other retention of urine; D63.1 Anemia in chronic kidney disease; D50.9 Iron deficiency anemia, unspecified; E03.9 Hypothyroidism, unspecified; Z90.49 Acquired absence of other specified parts of digestive tract; Z95.0 Presence of cardiac pacemaker; Z79.84 Long term (current) use of oral hypoglycemic drugs
CPT/HCPCS: 36415; 51702; 70450; 71045; 76770; 80048; 80053; 80307; 81001; 82272; 82550; 82553; 82607; 82728; 82746; 82962; 83540; 83550; 83735; 84443; 84484; 85025; 85045; 87040; 87086; 87088; 87186; 93005; 93010; 94640; 96365; 96375; 99291; J0610; J0696; J1644; J1815; J1956; J3490; J7030; Q4081; S0164

== ENCOUNTER 2017-12-23 13:39 | Emergency (ER) | payer MEDICARE, BC ==
[2017-12-23] MEDS ORDERED: NORMAL SALINE 500 ML IV ONE ×2 (14:27→16:23)
--- NOTE | 2017-12-23 14:41 | ER Document Report ---
ED General - General Chief Complaint: Altered Mental Status Stated Complaint: ALTERED MENTAL STATUS Time Seen by Provider: 12/23/17 14:07 Mode of Arrival: Wheelchair Information source: Patient, Relative TRAVEL OUTSIDE OF THE [place] IN LAST 30 DAYS: No - HPI Notes: Patient is an 87-year-old male history of [id number] diabetes osteoarthritis, hypertension, chronic kidney disease, prostate enlargement and pacemaker presents to the emergency department with report of hallucinations last evening where he saw an animal on the floor and then again this morning. The patient was brought in by family and the hallucinations have since resolved and he is acting like his normal self. The patient denies any chest pain, shortness of breath, nausea, vomiting, constipation, diarrhea, fever or chills. No abdominal pain. The patient has a indwelling David catheter and was admitted from 12/15/17 to 12/18/17 with similar hallucinations and was found to have dehydration with acute kidney injury and a UTI and urinary retention. He left with a David catheter which still is in place and is draining clearly. The urine culture from previous admission grew Pseudomonas which was sensitive to Cipro which the patient was sent home on for a 5-day course. Patient normally ambulates using a walker and this is not unusual. The patient knows the year and president but intermittently refers to his daughter as his and then corrects himself. The patient's daughter states this is not unusual however. Currently they state the patient is acting like his normal self. The patient has recently been on nitrofurantoin and this was just discontinued. The patient is on the same antihypertensive regimen with metoprolol lisinopril and Lasix, but he has lost 20 pounds over the last few months and he arrives with a blood pressure 91/54. - Related Data Allergies/Adverse Reactions: No Known Allergies Allergy (Verified 12/23/17 13:42) Past Medical History - General Information source: Patient - Social History Smoking Status: Never Smoker Frequency of alcohol use: None Drug Abuse: None Lives with: Family Family History: Reviewed & Not Pertinent, Other - Unobtainable - Past Medical History Cardiac Medical History: Reports: Hx Hypertension - medicated Denies: Hx Heart Attack Pulmonary Medical History: Denies: Hx Asthma Neurological Medical History: Denies: Hx Cerebrovascular Accident, Hx Seizures Endocrine Medical History: Reports: Hx Diabetes Mellitus Type 2 Renal/ Medical History: Reports: Hx Renal Insufficiency. Denies: Hx Peritoneal Dialysis GI Medical History: Denies: Hx Hepatitis, Hx Hiatal Hernia, Hx Ulcer Musculoskeletal Medical History: Reports Hx Arthritis Psychiatric Medical History: Denies: Hx Depression Infectious Medical History: Denies: Hx Hepatitis Past Surgical History: Reports: Hx Cholecystectomy - pacemaker, Hx Orthopedic Surgery - right knee implant, left shoulder implant, Hx Pacemaker. Denies: Hx Open Heart Surgery - Immunizations Hx Diphtheria, Pertussis, Tetanus Vaccination: Yes Review of Systems - Review of Systems -: Yes All other systems reviewed and negative Physical Exam - Vital signs Vitals: Temp Pulse Resp BP Pulse Ox 97.5 F 61 18 91/54 L 100 12/23/17 14:00 12/23/17 14:00 12/23/17 14:00 12/23/17 14:00 12/23/17 14:00 - Notes Notes: PHYSICAL EXAMINATION: GENERAL: Well-appearing, well-nourished and in no acute distress. HEAD: Atraumatic, normocephalic. EYES: Pupils equal round and reactive to light, extraocular movements intact, sclera anicteric, conjunctiva are normal. ENT: Nares patent, oropharynx clear without exudates. Moist mucous membranes. NECK: Normal range of motion, supple without lymphadenopathy LUNGS: Breath sounds clear to auscultation bilaterally and equal. No wheezes rales or rhonchi. HEART: Regular rate and rhythm with 1/6 SINDHU over apex. ABDOMEN: Soft, nontender, nondistended abdomen. No guarding, no rebound. No masses appreciated. Musculoskeletal: Normal range of motion. No cyanosis. Trace bilateral lower extremity edema. NEUROLOGICAL: Cranial nerves grossly intact. Normal speecj. Normal sensory, motor exams with exception of foot drop left lower extremity which is chronic from old left knee surgery. The patient has a posterior brace in place chronically. No gross cerebellar ataxia. No hallucinations. PSYCH: Normal mood, normal affect. SKIN: Warm, Dry, normal turgor, no rashes or lesions noted. Course - Re-evaluation Re-evalutation: 12/23/17 14:41 Given the low blood pressure of 91/54, the patient was given normal saline bolus 500 cc. There appears to be no focal unilateral neurologic deficit, and the patient had a negative head CT on 12/15/17. 12/23/17 16:23 Patient's chronic anemia was unchanged from previous values and is most likely secondary to chronic renal insufficiency. Patient's creatinine is slightly improved from previous values on review of old records. Blood pressure improved with normal saline. Based upon previous urine culture results and current UTI with indwelling David catheter, patient was given 1 dose of Zosyn IV and will be started back on Cipro at renal dose adjusted level. 12/23/17 18:37 After a total of 1 L of normal saline, the patient had normal blood pressure upon standing and was without complaint. There are currently no hallucinations. Hopefully the patient will not need an antipsychotic. Hopefully adjustments in his blood pressure medications will help with his blood pressure which may in turn help some of his general malaise and hallucinations. 12/23/17 18:39 No clinical suggestion for sepsis. 12/23/17 18:39 We will stop the Toviaz related to urinary retention. Patient is already on tamsulosin. 12/23/17 18:40 Patient is set to see his regular practitioner in 1 week and see the urologist in 1 week. - Vital Signs Vital signs: Temp Pulse Resp BP Pulse Ox 97.5 F 61 20 127/53 H 100 12/23/17 14:00 12/23/17 14:00 12/23/17 17:02 12/23/17 17:02 12/23/17 17:02 - Laboratory Result Diagrams: 12/23/17 14:40 12/23/17 14:40 Laboratory results interpreted by me: 12/23/17 12/23/17 12/23/17 14:40 14:40 14:40 RBC 2.76 L Hgb 8.3 L Hct 24.2 L RDW 19.2 H Carbon Dioxide 21 L BUN 56 H Creatinine 2.83 H Est GFR ( Amer) 26 L Est GFR (Non-Af Amer) 21 L Glucose 133 H AST 11 L ALT 14 L Total Protein 5.5 L Albumin 2.6 L Urine Protein 100 H Urine Glucose (UA) 50 H Urine Blood MODERATE H Ur Leukocyte Esterase LARGE H - EKG Interpretation by Me Additional EKG results interpreted by me: 12/23/17 16:19 EKG as interpreted by me showed AV sequential paced rhythm with secondary right bundle branch block and left posterior fascicular block. There is no gross evidence for acute CA or ischemia noted. There is no significant change from previous EKG reviewed from 12/15/17. Discharge - Discharge Clinical Impression: Weight loss, Hallucinations, Chronic anemia, Chronic renal insufficiency, stage III (moderate), Urinary tract infection Hypotension Qualifiers: Hypotension type: unspecified hypotension type Qualified Code(s): I95.9 - Hypotension, unspecified Condition: Stable Disposition: HOME, SELF-CARE Instructions: David Catheter Care ([facility]), Hallucinations ([facility]), Hypotension ([facility] ), Urinary Tract Infection ([facility]) Additional Instructions: Stop Toviaz. Stop Lisinopril. Cut dose of metoprolol in half. Prescriptions: Ciprofloxacin HCl [Cipro 250 mg Tablet] 250 mg PO BID #14 tablet Referrals: ANKIT VALVERDE PA-C [Primary Care Provider] - Follow up in 1 week ANNA VÁZQUEZ MD [NO LOCAL MD] - Follow up in 1 week
[2017-12-23 15:03] LABS: ABSOLUTE EOSINOPHILS # (AUTO) 0.1 10^3/uL (0.0-0.6); ABSOLUTE MONOCYTES (AUTO) 0.3 10^3/uL (0.1-1.4); ABSOLUTE NEUT (AUTO) 4.7 10^3/uL (1.7-8.2); BASOPHILS % (AUTO) 0.4 % (0-2); EOSINOPHILS % (AUTO) 0.8 % (0-6); HEMATOCRIT 24.2 % (37.9-51.0); HEMOGLOBIN 8.3 g/dL (13.5-17.0); LYMPHOCYTES % (AUTO) 16.3 % (13-45); MEAN CORPUSCULAR HGB CONC 34.2 g/dL (32.0-36.0); MEAN CORPUSCULAR VOLUME 88 fl (80-97); MONOCYTES % (AUTO) 5.3 % (3-13); PLATELET COUNT 221 10^3/uL (150-450); RED BLOOD COUNT 2.76 10^6/uL (4.35-5.55); RED CELL DISTRIBUTION WIDTH 19.2 % (11.5-14.0); SEGMENTED NEUTROPHILS % (AUTO) 77.2 % (42-78); TOTAL CELLS COUNTED % (AUTO) 100 %; WHITE BLOOD COUNT 6.1 10^3/uL (4.0-10.5)
[2017-12-23 15:17] LABS: APPEARANCE,URINE SLIGHTLY-CLOUDY; BILIRUBIN,URINE NEGATIVE (NEGATIVE); COLOR,URINE YELLOW; GLUCOSE, URINE 50 mg/dL (NEGATIVE); KETONES,URINE NEGATIVE (NEGATIVE); LEUKOCYTE ESTERASE,URINE LARGE (NEGATIVE); NITRITE,URINE NEGATIVE (NEGATIVE); PROTEIN,URINE 100 mg/dL (NEGATIVE); URINE SPECIFIC GRAVITY 1.013; UROBILINOGEN,URINE NEGATIVE mg/dL (<2.0)
[2017-12-23 15:22] LABS: ALANINE AMINOTRANSFERASE 14 U/L (21-72); ALBUMIN 2.6 g/dL (3.5-5.0); ALKALINE PHOSPHATASE 66 U/L (38-126); ANION GAP 10 (5-19); ASPARTATE AMINO TRANSFERASE 11 U/L (17-59); BILIRUBIN,DIRECT 0.2 mg/dL (0.0-0.4); BILIRUBIN,TOTAL 0.3 mg/dL (0.2-1.3); BLOOD UREA NITROGEN 56 mg/dL (7-20); CALCIUM 8.7 mg/dL (8.4-10.2); CARBON DIOXIDE 21 mmol/L (22-30); CHLORIDE 107 mmol/L (98-107); GLUCOSE 133 mg/dL (75-110); POTASSIUM 4.1 mmol/L (3.6-5.0); SODIUM 137.8 mmol/L (137-145); TOTAL PROTEIN 5.5 g/dL (6.3-8.2)
[2017-12-23 15:40] LABS: FREE T4 (FREE THYROXINE) 1.6 ng/dL (0.78-2.19)
--- NOTE | 2017-12-23 15:52 | RADIOLOGY REPORT (SQ) ---
EXAM DESCRIPTION: CHEST SINGLE VIEW COMPLETED DATE/TIME: 12/23/2017 3:45 pm REASON FOR STUDY: cough COMPARISON: 11/02/2014. EXAM PARAMETERS: NUMBER OF VIEWS: One view. TECHNIQUE: Single frontal radiographic view of the chest acquired. RADIATION DOSE: NA LIMITATIONS: None. FINDINGS: LUNGS AND PLEURA: No opacities, masses or pneumothorax. No pleural effusion. MEDIASTINUM AND HILAR STRUCTURES: No masses. Contour normal. HEART AND VASCULAR STRUCTURES: Heart normal in size. Normal vasculature. BONES: No acute findings. Degenerative changes in the right shoulder. HARDWARE: Pacemaker. Left shoulder prosthesis. OTHER: No other significant finding. IMPRESSION: NO ACUTE RADIOGRAPHIC FINDING IN THE CHEST. TECHNICAL DOCUMENTATION: JOB ID: [id number] [employer]- All Rights Reserved Reading location - IP/workstation name: [email or web address]
[2017-12-23 15:54] LABS: THYROID STIMULATING HORMONE 4.58 uIU/mL (0.47-4.68)
[2017-12-23] MEDS ORDERED: PIPERACILLIN/TAZOBACTAM 3.375 GM VIAL IV ONE (16:23)
[2017-12-23] MEDS ORDERED: CIPROFLOXACIN HCL 500 MG TABLET PO ONE (16:24)
[2017-12-23 19:39] VITALS: BP 125/87
--- NOTE | 2017-12-23 21:05 | EKG REPORT ---
SEVERITY:- ABNORMAL ECG - VENTRICULAR PACED COMPLEXES CAN NOT R/O UNDERLYING A FIB RBBB AND LPFB NONSPECIFIC ST DEPRESSION, ANT-LAT LEADS : Confirmed by: Armin Liu 23-Dec-2017 21:04:45
== END 2017-12-23 19:06 | disposition home or self-care (01) ==
LOC: ER 13:39
DX: N39.0 Urinary tract infection, site not specified (principal); I95.9 Hypotension, unspecified; R44.3 Hallucinations, unspecified; I12.9 Hypertensive chronic kidney disease with stage 1 through stage 4 chronic kidney disease, or unspecified chronic kidney disease; E11.22 Type 2 diabetes mellitus with diabetic chronic kidney disease; N18.3 Chronic kidney disease, stage 3 (moderate); D63.1 Anemia in chronic kidney disease; R63.4 Abnormal weight loss; I45.2 Bifascicular block; R53.81 Other malaise; N40.0 Benign prostatic hyperplasia without lower urinary tract symptoms; Z79.899 Other long term (current) drug therapy; Z95.0 Presence of cardiac pacemaker
CPT/HCPCS: 93005; 99285; 96361; 96365; 36415; 87040; 87086; 84439; 83735; 84443; 85025; 80053; 81001; 83605; 71045; 93010; A9270; J7040; J2543

== ENCOUNTER → 2017-12-25 | Outpatient (CLI) | payer MEDICARE, BC ==
[2017-12-25 17:53] LABS: HEMATOCRIT 27.3 % (37.9-51.0); HEMOGLOBIN 9.3 g/dL (13.5-17.0); MEAN CORPUSCULAR HEMOGLOBIN 29.9 pg (27.0-33.4); MEAN CORPUSCULAR HGB CONC 34.1 g/dL (32.0-36.0); MEAN CORPUSCULAR VOLUME 88 fl (80-97); PLATELET COUNT 249 10^3/uL (150-450); RED BLOOD COUNT 3.12 10^6/uL (4.35-5.55); RED CELL DISTRIBUTION WIDTH 18.9 % (11.5-14.0); WHITE BLOOD COUNT 10.2 10^3/uL (4.0-10.5)
[2017-12-25 17:56] LABS: HEMATOCRIT 27.3 % (37.9-51.0); HEMOGLOBIN 9.3 g/dL (13.5-17.0); MEAN CORPUSCULAR HEMOGLOBIN 29.9 pg (27.0-33.4); MEAN CORPUSCULAR HGB CONC 34.1 g/dL (32.0-36.0); MEAN CORPUSCULAR VOLUME 88 fl (80-97); PLATELET COUNT 249 10^3/uL (150-450); RED BLOOD COUNT 3.12 10^6/uL (4.35-5.55); RED CELL DISTRIBUTION WIDTH 18.9 % (11.5-14.0); WHITE BLOOD COUNT 10.2 10^3/uL (4.0-10.5)
[2017-12-25 18:04] LABS: APPEARANCE,URINE SLIGHTLY-CLOUDY; BILIRUBIN,URINE NEGATIVE (NEGATIVE); COLOR,URINE YELLOW; GLUCOSE, URINE 50 mg/dL (NEGATIVE); KETONES,URINE NEGATIVE (NEGATIVE); LEUKOCYTE ESTERASE,URINE SMALL (NEGATIVE); NITRITE,URINE NEGATIVE (NEGATIVE); PROTEIN,URINE 30 mg/dL (NEGATIVE); URINE SPECIFIC GRAVITY 1.012; UROBILINOGEN,URINE NEGATIVE mg/dL (<2.0)
[2017-12-25 18:05] LABS: APPEARANCE,URINE SLIGHTLY-CLOUDY; BILIRUBIN,URINE NEGATIVE (NEGATIVE); COLOR,URINE YELLOW; GLUCOSE, URINE 50 mg/dL (NEGATIVE); KETONES,URINE NEGATIVE (NEGATIVE); LEUKOCYTE ESTERASE,URINE SMALL (NEGATIVE); NITRITE,URINE NEGATIVE (NEGATIVE); PROTEIN,URINE 30 mg/dL (NEGATIVE); URINE SPECIFIC GRAVITY 1.012; UROBILINOGEN,URINE NEGATIVE mg/dL (<2.0)
[2017-12-25 18:11] LABS: BLOOD UREA NITROGEN 48 mg/dL (7-20); CARBON DIOXIDE 22 mmol/L (22-30)
[2017-12-25 18:12] LABS: ANION GAP 13 (5-19); BLOOD UREA NITROGEN 48 mg/dL (7-20); CALCIUM 9.2 mg/dL (8.4-10.2); CARBON DIOXIDE 22 mmol/L (22-30); CHLORIDE 107 mmol/L (98-107); GLUCOSE 104 mg/dL (75-110); SODIUM 142.4 mmol/L (137-145)
[2017-12-26 09:24] LABS: CALCIUM 9.2 mg/dL (8.4-10.2)
[2017-12-26 09:25] LABS: CHLORIDE 107 mmol/L (98-107); GLUCOSE 104 mg/dL (75-110)
[2017-12-26 09:26] LABS: ANION GAP 13 (5-19); SODIUM 142.4 mmol/L (137-145)
== END ==
LOC: OD 16:08
PROVIDERS: ATTEND Internal Medicine Nephrology
DX: E11.22 Type 2 diabetes mellitus with diabetic chronic kidney disease (principal); N18.3 Chronic kidney disease, stage 3 (moderate); D64.9 Anemia, unspecified; M10.00 Idiopathic gout, unspecified site; E87.1 Hypo-osmolality and hyponatremia
CPT/HCPCS: 36415; 80048; 81001; 83735; 85027

== ENCOUNTER → 2018-02-05 | Outpatient (CLI) | payer MEDICARE, BC ==
[2018-02-05 16:06] LABS: HEMATOCRIT 26.3 % (37.9-51.0); HEMOGLOBIN 8.9 g/dL (13.5-17.0); MEAN CORPUSCULAR HEMOGLOBIN 28.8 pg (27.0-33.4); MEAN CORPUSCULAR HGB CONC 33.9 g/dL (32.0-36.0); MEAN CORPUSCULAR VOLUME 85 fl (80-97); PLATELET COUNT 204 10^3/uL (150-450); RED CELL DISTRIBUTION WIDTH 17.3 % (11.5-14.0)
[2018-02-05 16:13] LABS: APPEARANCE,URINE CLOUDY; BILIRUBIN,URINE NEGATIVE (NEGATIVE); COLOR,URINE YELLOW; GLUCOSE, URINE NEGATIVE (NEGATIVE); KETONES,URINE NEGATIVE (NEGATIVE); LEUKOCYTE ESTERASE,URINE LARGE (NEGATIVE); NITRITE,URINE NEGATIVE (NEGATIVE); PROTEIN,URINE NEGATIVE (NEGATIVE); UROBILINOGEN,URINE NEGATIVE mg/dL (<2.0)
[2018-02-05 16:32] LABS: ANION GAP 13 (5-19); BLOOD UREA NITROGEN 45 mg/dL (7-20); CALCIUM 9.7 mg/dL (8.4-10.2); CARBON DIOXIDE 24 mmol/L (22-30); CHLORIDE 108 mmol/L (98-107); GLUCOSE 123 mg/dL (75-110); PHOSPHORUS 3.5 mg/dL (2.5-4.5); POTASSIUM 4.4 mmol/L (3.6-5.0); SODIUM 144.8 mmol/L (137-145)
== END ==
LOC: OD 15:22
PROVIDERS: ATTEND Physician Assistant Medical
DX: N18.3 Chronic kidney disease, stage 3 (moderate) (principal); E83.42 Hypomagnesemia; M10.00 Idiopathic gout, unspecified site; D64.9 Anemia, unspecified; E11.9 Type 2 diabetes mellitus without complications
CPT/HCPCS: 36415; 80048; 81001; 83735; 83970; 84100; 85027

== ENCOUNTER → 2018-03-24 | Outpatient (CLI) | payer MEDICARE, BC ==
[2018-03-24 14:38] LABS: HEMATOCRIT 23.2 % (37.9-51.0); MEAN CORPUSCULAR HGB CONC 32.8 g/dL (32.0-36.0); MEAN CORPUSCULAR VOLUME 79 fl (80-97); PLATELET COUNT 260 10^3/uL (150-450); RED BLOOD COUNT 2.92 10^6/uL (4.35-5.55); RED CELL DISTRIBUTION WIDTH 16.3 % (11.5-14.0); WHITE BLOOD COUNT 7.3 10^3/uL (4.0-10.5)
[2018-03-24 14:53] LABS: IRON(TIBC) 16.4 ug/dL (49-181)
[2018-03-24 17:12] LABS: HEMOGLOBIN 7.6 g/dL (13.5-17.0)
== END ==
LOC: OD 12:53
PROVIDERS: ATTEND Internal Medicine Nephrology
DX: D64.9 Anemia, unspecified (principal); N18.3 Chronic kidney disease, stage 3 (moderate)
CPT/HCPCS: 36415; 82728; 83540; 83550; 85027

== ENCOUNTER 2018-04-02 09:36 | Outpatient (CLI) | payer MEDICARE, BC ==
[~2018-04-02 09:36] MED LIST: FERRIC CARBOXYMALTOSE 750 MG in NORMAL SALINE 250 ML IV PRN
[2018-04-02 10:13] VITALS: BP 117/56
== END 2018-04-02 11:41 | disposition home or self-care (01) ==
LOC: II 09:36 → 5TH 09:41 → II 11:41
PROVIDERS: ATTEND Internal Medicine Nephrology
PROC: 3E033GC Introduction of Other Therapeutic Substance into Peripheral Vein, Percutaneous Approach (ICD-10-PCS; principal; 2018-04-02)
DX: D50.8 Other iron deficiency anemias (principal)
CPT/HCPCS: 96367; J7050; J1439; 96365

== ENCOUNTER 2018-04-09 10:14 | Outpatient (CLI) | payer MEDICARE, BC ==
[2018-04-09] MEDS ORDERED: FERRIC CARBOXYMALTOSE 750 MG in NORMAL SALINE 250 ML IV PRN ×2 (10:24→10:27)
[2018-04-09 11:06] VITALS: BP 119/51
== END 2018-04-09 11:32 ==
LOC: II 10:14 → 5TH 10:14 → II 11:32
PROVIDERS: ATTEND Internal Medicine Nephrology
PROC: 3E033GC Introduction of Other Therapeutic Substance into Peripheral Vein, Percutaneous Approach (ICD-10-PCS; principal; 2018-04-09)
DX: D50.8 Other iron deficiency anemias (principal)
CPT/HCPCS: 96367; J7050; J1439; 96365

== ENCOUNTER → 2018-05-04 | Outpatient (CLI) | payer MEDICARE, BC ==
[2018-05-04 14:09] LABS: HEMATOCRIT 24.7 % (37.9-51.0); HEMOGLOBIN 8.2 g/dL (13.5-17.0); MEAN CORPUSCULAR HEMOGLOBIN 29.1 pg (27.0-33.4); MEAN CORPUSCULAR HGB CONC 33.3 g/dL (32.0-36.0); MEAN CORPUSCULAR VOLUME 87 fl (80-97); PLATELET COUNT 276 10^3/uL (150-450); RED BLOOD COUNT 2.82 10^6/uL (4.35-5.55); RED CELL DISTRIBUTION WIDTH 24.7 % (11.5-14.0); WHITE BLOOD COUNT 7.1 10^3/uL (4.0-10.5)
[2018-05-04 14:26] LABS: APPEARANCE,URINE TURBID; BILIRUBIN,URINE NEGATIVE (NEGATIVE); COLOR,URINE YELLOW; GLUCOSE, URINE NEGATIVE (NEGATIVE); KETONES,URINE NEGATIVE (NEGATIVE); LEUKOCYTE ESTERASE,URINE LARGE (NEGATIVE); NITRITE,URINE POSITIVE (NEGATIVE); PROTEIN,URINE 30 mg/dL (NEGATIVE); URINE SPECIFIC GRAVITY 1.012; UROBILINOGEN,URINE NEGATIVE mg/dL (<2.0)
[2018-05-04 14:29] LABS: ANION GAP 12 (5-19); BLOOD UREA NITROGEN 59 mg/dL (7-20); CALCIUM 9.8 mg/dL (8.4-10.2); CARBON DIOXIDE 20 mmol/L (22-30); CHLORIDE 112 mmol/L (98-107); GLUCOSE 176 mg/dL (75-110); PHOSPHORUS 3.5 mg/dL (2.5-4.5); POTASSIUM 4.5 mmol/L (3.6-5.0); SODIUM 143.9 mmol/L (137-145)
== END ==
LOC: OD 13:05
PROVIDERS: ATTEND Physician Assistant Medical
DX: E11.22 Type 2 diabetes mellitus with diabetic chronic kidney disease (principal); N18.3 Chronic kidney disease, stage 3 (moderate); D64.9 Anemia, unspecified
CPT/HCPCS: 36415; 80048; 81001; 83970; 84100; 85027